=== PATIENT | male | born 1965 | race Caucasian/White ===

== ENCOUNTER → 2018-11-01 10:52 | Outpatient (CLI) | payer SELFPAY | PROVIDERS: Visit Provider Physician Assistant | DX: R68.89 Other general symptoms and signs (principal) | CPT/HCPCS: 87400 ==

== ENCOUNTER → 2018-11-01 11:00 | Outpatient (REF) | payer SELFPAY | LOC: LAB 11:00 | PROVIDERS: Visit Provider Physician Assistant | DX: R68.89 Other general symptoms and signs (principal) ==

== ENCOUNTER 2018-11-01 11:01 | Inpatient (IN) | payer SELFPAY ==
[2018-11-01] VITALS (13 sets, daily range): BP systolic 122–158; BP diastolic 87–99; PULSE 91–130; RESP 20–36; TEMP 37.1–38.8; O2SAT 88–96; BMI 33.9; BMI 35.9
--- NOTE | 2018-11-01 11:02 | DI.RAD.S_ITS ---
PROCEDURE: XR CHEST 2V INDICATIONS: septic eval, cough, fever, chills TECHNIQUE: 2 views of the chest were acquired. COMPARISON: None. FINDINGS: Surgical changes and devices: None. Lungs and pleura: No pleural effusions or pneumothorax. There is pulmonary vascular prominence bilaterally compatible with mild edema. Confluent opacities also noted in the right infrahilar region. Mediastinum: Mediastinal contours are within normal limits. Heart size is normal. Bones and chest wall: No suspicious bony abnormalities. Soft tissues appear unremarkable. IMPRESSION: 1. Right infrahilar opacities consistent with developing consolidation/pneumonia or atelectasis. 2. Mild pulmonary edema is nonspecific and may reflect an atypical infection. Dictated by: Burton Wong M.D. on 11/01/2018 at 11:41 Approved by: Burton Wong M.D. on 11/01/2018 at 11:43
[2018-11-01 11:55] LABS: Add Manual Diff / Slide Review NO; Basophils Absolute Auto 0 /uL (0-100); Basophils Percent Auto 0.6 % (0-2); Eosinophils Absolute Auto 0 /uL (0-450); Eosinophils Percent Auto 0.1 % (2-4); Hematocrit 47.8 % (41-53); Hemoglobin 16.1 g/dL (13.5-17.5); Lymphocytes Absolute Auto 700 /uL (1100-4500); Lymphocytes Percent Auto 9.4 % (25-40); Mean Corpuscular HGB Conc 33.6 % (30-36); Mean Corpuscular Hemoglobin 30.5 PG (26-34); Mean Corpuscular Volume 90.9 fL (80-100); Monocytes Absolute Auto 800 /uL (0-900); Neutrophils Absolute Auto 5500 /uL (1500-7000); Neutrophils Percent Auto 78.9 % (50-75); Platelet Count 252 X10^3/uL (150-400); Red Blood Cell Count 5.26 X10^6/uL (4.5-5.9); Red Cell Distribution Width 13.6 % (11.6-14.8); White Blood Cell Count 6.9 X10^3/uL (4.5-11.0)
--- NOTE | 2018-11-01 11:56 | ED.FEVER ---
HPI - Fever General Chief Complaint: Fever Stated Complaint: FLU LIKE SYMPTOMS Time Seen by Provider: 11/01/18 11:01 Source: patient Mode of arrival: ambulatory Limitations: no limitations History of Present Illness HPI Narrative: 52-year-old male smoker with history of hypertension presents from the walk-in clinic for evaluation of significant respiratory distress, fever and shaking chills. He had what seemed like a typical cold about 2 weeks ago and was doing okay until 3 days ago he began to get quite ill. He complains of headache, sore throat dry hacking cough as well as fever and shaking chills. Today he initially presented to the walk-in clinic who sent him here upon realizing how ill he potentially is. He has nausea and small amount of vomiting but denies any significant diarrhea. On arrival patient has pulse ox in the mid 80s which promptly rises to mid 90s when placed on 4 L by nasal cannula complaint: fever and malaise Onset (ago): day(s) Temperature Source: oral Associated symptoms: chills, rigors, myalgias and cough Relieving factors: nothing Exacerbating factors: nothing Treatments prior to arrival fever: none Related Data Home Medications Medication Instructions Recorded Confirmed aspirin 81 mg PO DAILY 11/01/18 11/01/18 Allergies Allergy/AdvReac Type Severity Reaction Status Date / Time No Known Drug Allergies Allergy Verified 11/01/18 11:33 Review of Systems Constitutional Reports chills, Reports fever(s), Denies lethargy, Reports malaise and Denies weakness Eyes Denies change in vision, Denies eye discharge, Denies irritation and Denies loss of vision ENT Ears, Nose, Mouth, and Throat: Denies change in voice, Denies neck pain and Denies sore throat Cardiovascular Denies chest pain, Denies irregular heart rhythm, Denies lightheadedness, Denies palpitations, Reports dyspnea, Denies dyspnea on exertion and Denies orthopnea Respiratory Reports cough, Reports dyspnea, Denies dyspnea on exertion and Denies wheezing Gastrointestinal Gastrointestinal: Denies abdominal pain, Denies change in bowel habits, Reports diarrhea, Reports nausea and Denies vomiting Genitourinary Denies hematuria, Denies flank pain, Denies urinary incontinence and Denies urinary urgency Musculoskeletal Denies neck pain Integumentary/Breasts Denies pruritus, Denies erythema, Denies rash and Denies wounds Neurologic Denies confusion, Denies loss of vision and Denies weakness Psychiatric Denies anxiety, Denies confusion, Denies depression, Denies homicidal ideation and Denies suicidal ideation Endocrine Denies palpitations Hematologic/Lymphatic Denies easy bruising Allergic/Immunologic Denies wheezing [facility] Social History Smoking Status: Current every day smoker Exam Narrative Exam Narrative: 52-year-old male, appears stated age, obviously quite ill with noted work of breathing Initial Vital Signs Initial Vital Signs: Vital Signs Temperature 102 F H 11/01/18 11:10 Pulse Rate 130 H 11/01/18 11:10 Respiratory Rate 36 H 11/01/18 11:10 Blood Pressure 141/94 H 11/01/18 11:10 Pulse Oximetry 88 L 11/01/18 11:10 Const General: cooperative, well developed and acute distress Nutritional Appearance: well nourished Orientation: alert, awake, oriented x3 and not confused HENMT Head: normal to inspection Ears: hearing grossly normal bilaterally Nose: external nose normal Face and sinus: normal facial exam Mouth: oral mucosae normal Eyes General: appearance normal, both eyes and all related structures Eyelids: eyelids normal Conjunctivae: conjunctivae normal Sclera: sclerae normal Pupils: PERRL EOM: EOM intact bilaterally Neck Neck: normal visual inspection, trachea midline, No lymphadenopathy, No midline deformity and No JVD Lymphatic: No lymphedema Resp Effort & Inspection: audible wheezes, cough, labored, respiratory distress, tachypneic and uses accessory muscles Auscultation: rhonchi and wheezes Cardio Rate: tachycardic Rhythm: regular rhythm Heart Sounds: no click, no gallops, no murmurs and no rubs Pulses: normal peripheral pulses GI Inspection: non-distended Palpation: soft, no hepatosplenomegaly, No guarding, No pulsatile mass and No tender Auscultation: normal bowel sounds Back/Spine/Pelvis Back: No CVA tenderness Cervical Spine: cervical ROM normal and No pain with cervical ROM Thoracic/Lumbar Spine: thoracic and lumbar spine normal to inspection Neuro General: alert, oriented x3, gait normal and no focal motor deficits Speech: speech normal Extrem General: full ROM, no clubbing, cyanosis or edema, no pedal edema and no calf tenderness Course Orders Ordered: ED Orders 11/01/18 11:02 XR chest 2V Stat 11/01/18 11:40 Complete Blood Count AUTO DIFF Stat Comprehensive Metabolic Panel Stat Lactate (Lactic Acid) Stat Procalcitonin Stat 11/01/18 12:07 Blood Culture Stat 11/01/18 12:55 Arterial Blood Gas Stat Sodium Chloride (Normal Saline 0.9%) 3,498 mls @ 1,166 mls/hr 30 ml/kg infuse over 3 hr (3498 ml) IV CONT WINTER Last Admin: 11/01/18 12:24 Dose: 1,166 mls/hr Ceftriaxone Sodium/Dextrose (Rocephin) 1 gm in 50 mls @ 100 mls/hr IV NOW ONE Stop: 11/01/18 14:07 Last Admin: 11/01/18 13:46 Dose: 100 mls/hr Discontinued Medications Acetaminophen (Tylenol) 975 mg PO NOW ONE Stop: 11/01/18 13:18 Last Admin: 11/01/18 13:29 Dose: 975 mg Albuterol/Ipratropium (Duoneb) 3 ml INH NOW ONE Stop: 11/01/18 12:01 Last Admin: 11/01/18 12:04 Dose: 3 ml Levofloxacin (Levaquin) 750 mg in 150 mls @ 100 mls/hr IV NOW ONE Stop: 11/01/18 13:23 Last Infusion: 11/01/18 13:47 Dose: 0 mls/hr Admin: 11/01/18 12:03 Dose: 100 mls/hr Oseltamivir Phosphate (Tamiflu) 75 mg PO NOW ONE Stop: 11/01/18 13:09 Last Admin: 11/01/18 13:29 Dose: 75 mg Vital Signs - 8 hr 11/01/18 11:10 11/01/18 11:35 11/01/18 12:01 Temperature 102 F H Pulse Rate 130 H 120 H 112 H Respiratory Rate 36 H 30 H 30 H Blood Pressure 141/94 H Blood Pressure [Left Arm] 158/88 H Pulse Oximetry 88 L 94 92 11/01/18 12:23 11/01/18 13:16 11/01/18 13:29 Temperature 100.9 F H Pulse Rate 123 H 114 H Respiratory Rate 24 29 H Blood Pressure Blood Pressure [Left Arm] 139/89 150/99 H Pulse Oximetry 95 94 MDM - Fever Medical Records Attestation: I reviewed the patient's medical records. Lab Data Attestation: I reviewed the patient's lab results. Result diagrams: 11/01/18 11:40 11/01/18 11:40 Lab Results 11/01/18 11/01/18 11/01/18 Range/Units 11:40 11:40 11:40 WBC 6.9 (4.5-11.0) X10^3/uL RBC 5.26 (4.5-5.9) X10^6/uL Hgb 16.1 (13.5-17.5) g/dL Hct 47.8 (41-53) % MCV 90.9 (80-100) fL MCH 30.5 (26-34) PG MCHC 33.6 (30-36) % RDW 13.6 (11.6-14.8) % Plt Count 252 (150-400) X10^3/uL Neut % (Auto) 78.9 H (50-75) % Lymph % (Auto) 9.4 L (25-40) % [place] % (Auto) 11.0 (3-14) % Eos % (Auto) 0.1 L (2-4) % Baso % (Auto) 0.6 (0-2) % Neut # (Auto) 5500 (4406-1508) /uL Lymph # (Auto) 700 L (6899-6807) /uL [place] # (Auto) 800 (0-900) /uL Eos # (Auto) 0 (0-450) /uL Baso # (Auto) 0 (0-100) /uL ABG pH (7.35-7.45) ABG pCO2 (35-45) mmHg ABG pO2 (80-100) mmHg ABG HCO3 (22-26) mmol/L ABG Total CO2 (21-31) mmol/L ABG O2 Saturation (95-100) % ABG Base Excess (-2-2) mmol/L FiO2 Sodium 136 L (137-145) mmol/L Potassium 3.9 (3.4-5.1) mmol/L Chloride 99 (98-107) mmol/L Carbon Dioxide 25 (22-32) mmol/L BUN 15 (9-20) mg/dL Creatinine 1.10 (0.66-1.25) mg/dL Estimated GFR > 60.0 (>60) mL/min BUN/Creatinine Ratio 13.6 (6-22) Glucose 123 H (70-100) mg/dL Lactate (0.7-2.1) mmol/L Calcium 9.0 (8.4-10.2) mg/dL Total Bilirubin 0.6 (0.2-1.3) mg/dL AST 45 (17-59) IU/L ALT 50 (21-72) IU/L Alkaline Phosphatase 63 (38-126) U/L Total Protein 8.2 (6.3-8.2) g/dL Albumin 4.8 (3.5-5.0) g/dL Globulin 3.4 (1.7-4.1) g/dL Albumin/Globulin Ratio 1.4 (1.0-2.8) Procalcitonin 0.11 (<0.5) ng/mL 11/01/18 11/01/18 Range/Units 11:40 12:55 WBC (4.5-11.0) X10^3/uL RBC (4.5-5.9) X10^6/uL Hgb (13.5-17.5) g/dL Hct (41-53) % MCV (80-100) fL MCH (26-34) PG MCHC (30-36) % RDW (11.6-14.8) % Plt Count (150-400) X10^3/uL Neut % (Auto) (50-75) % Lymph % (Auto) (25-40) % [place] % (Auto) (3-14) % Eos % (Auto) (2-4) % Baso % (Auto) (0-2) % Neut # (Auto) (8344-5124) /uL Lymph # (Auto) (4139-6756) /uL [place] # (Auto) (0-900) /uL Eos # (Auto) (0-450) /uL Baso # (Auto) (0-100) /uL ABG pH 7.43 (7.35-7.45) ABG pCO2 34.3 L (35-45) mmHg ABG pO2 48 L* (80-100) mmHg ABG HCO3 23 (22-26) mmol/L ABG Total CO2 24 (21-31) mmol/L ABG O2 Saturation 85 L (95-100) % ABG Base Excess -2.0 (-2-2) mmol/L FiO2 0.21 Sodium (137-145) mmol/L Potassium (3.4-5.1) mmol/L Chloride (98-107) mmol/L Carbon Dioxide (22-32) mmol/L BUN (9-20) mg/dL Creatinine (0.66-1.25) mg/dL Estimated GFR (>60) mL/min BUN/Creatinine Ratio (6-22) Glucose (70-100) mg/dL Lactate 1.0 (0.7-2.1) mmol/L Calcium (8.4-10.2) mg/dL Total Bilirubin (0.2-1.3) mg/dL AST (17-59) IU/L ALT (21-72) IU/L Alkaline Phosphatase (38-126) U/L Total Protein (6.3-8.2) g/dL Albumin (3.5-5.0) g/dL Globulin (1.7-4.1) g/dL Albumin/Globulin Ratio (1.0-2.8) Procalcitonin (<0.5) ng/mL Imaging Data Chest x-ray: Radiologist's impression: [address] [id number] XRay Report Signed Patient: Addi Thornton [facility]#: [id number] : 1965Acct:[id number] Age/Sex: 52 / MDate of Service: 11/01/18 Loc: ED Accession Number: [id number] Procedure: XR chest 2V Ordering Provider: Victor Manuel Hinson D.O. PROCEDURE: XR CHEST 2V INDICATIONS: septic eval, cough, fever, chills TECHNIQUE: 2 views of the chest were acquired. COMPARISON: None. FINDINGS: Surgical changes and devices: None. Lungs and pleura: No pleural effusions or pneumothorax. There is pulmonary vascular prominence bilaterally compatible with mild edema. Confluent opacities also noted in the right infrahilar region. Mediastinum: Mediastinal contours are within normal limits. Heart size is normal. Bones and chest wall: No suspicious bony abnormalities. Soft tissues appear unremarkable. IMPRESSION: 1. Right infrahilar opacities consistent with developing consolidation/pneumonia or atelectasis. 2. Mild pulmonary edema is nonspecific and may reflect an atypical infection. Dictated by: Burton Wong M.D. on 11/01/2018 at 11:41 Approved by: Burton Wong M.D. on 11/01/2018 at 11:43 ECG Data Attestation: I personally reviewed and interpreted this ECG as follows: Prior ECG tracings: not available for review Interpretation: EKG is sinus tachycardia rhythm rate [ 113] and free of any signs of ischemia or ectopy. No ST segmental elevation or depression. No T wave inversions Discharge Plan Departure Patient Disposition: Admitted As Inpatient Clinical Impression: Acute respiratory failure with hypoxia, Sepsis, Influenza A, Pneumonia
[2018-11-01] MEDS: levoFLOXacin 750 MG/150 ML PIGGYBACK 100 MG IV (12:03)
[2018-11-01] MEDS: ALBUTEROL/IPRATROPIUM 3 ML AMPUL INH (12:04)
[2018-11-01 12:16] LABS: Alanine Aminotransferase 50 IU/L (21-72); Albumin 4.8 g/dL (3.5-5.0); Albumin Globulin Ratio 1.4 (1.0-2.8); Alkaline Phosphatase 63 U/L (38-126); Aspartate Aminotransferase 45 IU/L (17-59); BUN Creatinine Ratio 13.6 (6-22); Bilirubin Total 0.6 mg/dL (0.2-1.3); Blood Urea Nitrogen 15 mg/dL (9-20); Carbon Dioxide 25 mmol/L (22-32); Chloride 99 mmol/L (98-107); Estimated Glomerular Filt Rate > 60.0 mL/min (>60); Globulin 3.4 g/dL (1.7-4.1); Glucose 123 mg/dL (70-100); HEMOLYSIS < 15 (0-50); Potassium 3.9 mmol/L (3.4-5.1); Sodium 136 mmol/L (137-145); Total Protein 8.2 g/dL (6.3-8.2)
[2018-11-01] MEDS: SODIUM CHLORIDE 0.9% 1166 ML IV (12:24)
[2018-11-01 12:32] LABS: Procalcitonin 0.11 ng/mL (<0.5)
[2018-11-01] MEDS: ACETAMINOPHEN 325 MG TABLET 975 MG PO (13:29)
[2018-11-01] MEDS: OSELTAMIVIR 75 MG CAPSULE PO (13:29)
[2018-11-01 13:32] LABS: PCO2 ABG 34.3 mmHg (35-45); pH ABG 7.43 (7.35-7.45)
[2018-11-01 13:33] LABS: Fractionated Inspired Oxygen 0.21; HCO3 ABG 23 mmol/L (22-26); Oxygen Saturation ABG 85 % (95-100); PO2 ABG 48 mmHg (80-100); TCO2 ABG 24 mmol/L (21-31)
[2018-11-01] MEDS: CEFTRIAXONE 1 GM/50 ML FROZ.PIGGY IV (13:46)
--- NOTE | 2018-11-01 14:59 | PC.NURSE ---
Vital Signs entered by SAIL REPAIRER are said to be on Room Air, which is in error. Patient was on 3L NC throughout stay in ER. Room air saturation is 86%.
--- NOTE | 2018-11-01 17:16 | PC.NURSE ---
1715 - Pt c/o left-side chest pain, sharp with deep breath or cough. Resolve at rest with shallow breathing. VSS. Dr. Cooney aware.
--- NOTE | 2018-11-01 17:24 | P.HP_ITS ---
History of Present Illness Date Patient Seen: 11/01/18 Chief complaint: FLU LIKE SYMPTOMS Narrative: Addi Thornton is a 52-year-old male with a past medical history significant for hypertension, hyperlipidemia, prediabetes which are not medically treated who presented to [facility] for progressive worsening shortness of breath. The patient reports that he has had a productive cough and shortness of breath for several weeks. He reports that over the last 3 days his shortness of breath and cough have acutely worsened. He denies sick contacts. He has had associated fever, chills, nausea, fatigue and weakness. He denies abdominal pain, vomiting, dysuria diarrhea, or constipation. He is a current everyday smoker and smokes half a pack per day. He was found to be influenza a positive in the ED. He was in acute respiratory failure and placed on 4 L supplemental oxygen with saturations in the mid 90s. He was admitted for further management. Of note, patient has significant memory impairment and cannot recall past events , medications, etc. with previous workup for dementia in the past by Neurology unclear diagnosis? No history of CVA that he is aware. He does not have a PCP and has not been seen by a medical professional in 3 years. Patient History Medical History Hyperlipidemia (Acute) Hypertension (Acute) Prediabetes (Acute) Surgical History No history of previous surgery (Acute) Family & Social History Social History: household members spouse Prior Living Arrangements House The patient has a significant other times 10 years. He has 1 daughter and 1 son who are both healthy. 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 He is noncompliant with medical care and does not have a PCP. Safety & Behavioral: Feels Safe in Current Yes Environment Been Physically Hurt or No Threatened By a Person Suicidal Ideation Description None Suicide Plan Description No Plan Tobacco & Substance use: Smoking Status Current every day smoker Smoking packs per day 0.5 x 5 years alcohol intake frequency other Substance Use Type does not use Meds Home Medications Medication Instructions Recorded Confirmed Type Protandin 1 tab PO DAILY 11/01/18 11/01/18 History Tumeric Curcumin 2,000 mg PO DAILY 11/01/18 11/01/18 History aspirin 81 mg PO DAILY 11/01/18 11/01/18 History ibuprofen [Advil] 400 mg PO Q OTHER DAY PRN 11/01/18 11/01/18 History Allergies Allergy/AdvReac Type Severity Reaction Status Date / Time No Known Drug Allergies Allergy Verified 11/01/18 11:33 Review of Systems Review of Systems A 10 system comprehensive review of systems was conducted with the patient and found to be negative except as above in the History of Present Illness. Exam Vital Signs (past 8 hours): - 11/01/18 11:10 11/01/18 11:35 11/01/18 12:01 Temperature 102 F H Pulse Rate 130 H 120 H 112 H Respiratory Rate 36 H 30 H 30 H Blood Pressure 141/94 H Blood Pressure [Left Arm] 158/88 H Pulse Oximetry 88 L 94 92 11/01/18 12:23 11/01/18 13:16 11/01/18 13:29 Temperature 100.9 F H Pulse Rate 123 H 114 H Respiratory Rate 24 29 H Blood Pressure Blood Pressure [Left Arm] 139/89 150/99 H Pulse Oximetry 95 94 11/01/18 14:12 11/01/18 14:57 Temperature 98.7 F Pulse Rate 107 H 105 H Respiratory Rate 29 H 28 H Blood Pressure Blood Pressure [Left Arm] 122/87 130/90 Pulse Oximetry 94 94 Oxygen Delivery Method Nasal Cannula Oxygen Flow Rate 3 Narrative Exam Narrative: General: Middle-aged gentleman sitting in bed, appears ill but in no acute distress, well-developed, well-nourished, significant cognitive impairment at baseline with memory recall deficit. HEENT: Normocephalic, atraumatic. External ears without defect. Pupils equal, round, and reactive to light and accommodation. Anicteric sclerae, moist conjunctivae, and no lid lag. Oropharynx free of erythema and cobble stoning with moist mucosa. Neck: Supple with full range of motion. No lymphadenopathy or thyromegaly. Cardiovascular: Regular rhythm, tachycardic, without murmurs, rubs, or gallops appreciated. Pulmonary: Diminished throughout all lung [place] but clear to auscultation bilaterally without crackles, wheezes, or rhonchi. Normal respiratory effort with no use of accessory muscles. Abdomen: Soft, bowel sounds present, nontender, nondistended. No hepatosplenomegaly or masses appreciated. Extremities: No clubbing, cyanosis, or edema. Skin: Normal temperature, turgor, and texture; no rash, ulcers, or subcutaneous nodules appreciated. Neurological: Cranial nerves grossly intact. Normal muscle strength, tone, and bulk. Reflexes, coordination, and sensory function within normal limits. No known gait impairment. Significant cognitive impairment with long-term memory recall deficit. Psychiatric: Normal mood and affect. Alert and oriented to person, place, and time. Objective Labs Result Diagrams: 11/01/18 11:40 11/01/18 11:40 Labs: Laboratory Results - last 24 hr 11/01/18 11/01/18 11/01/18 11:40 11:40 11:40 WBC 6.9 RBC 5.26 Hgb 16.1 Hct 47.8 MCV 90.9 MCH 30.5 MCHC 33.6 RDW 13.6 Plt Count 252 Neut % (Auto) 78.9 H Lymph % (Auto) 9.4 L [place] % (Auto) 11.0 Eos % (Auto) 0.1 L Baso % (Auto) 0.6 Neut # (Auto) 5500 Lymph # (Auto) 700 L [place] # (Auto) 800 Eos # (Auto) 0 Baso # (Auto) 0 ABG pH ABG pCO2 ABG pO2 ABG HCO3 ABG Total CO2 ABG O2 Saturation ABG Base Excess FiO2 Sodium 136 L Potassium 3.9 Chloride 99 Carbon Dioxide 25 BUN 15 Creatinine 1.10 Estimated GFR > 60.0 BUN/Creatinine Ratio 13.6 Glucose 123 H Lactate Calcium 9.0 Total Bilirubin 0.6 AST 45 ALT 50 Alkaline Phosphatase 63 Total Protein 8.2 Albumin 4.8 Globulin 3.4 Albumin/Globulin Ratio 1.4 Procalcitonin 0.11 11/01/18 11/01/18 11:40 12:55 WBC RBC Hgb Hct MCV MCH MCHC RDW Plt Count Neut % (Auto) Lymph % (Auto) [place] % (Auto) Eos % (Auto) Baso % (Auto) Neut # (Auto) Lymph # (Auto) [place] # (Auto) Eos # (Auto) Baso # (Auto) ABG pH 7.43 ABG pCO2 34.3 L ABG pO2 48 L* ABG HCO3 23 ABG Total CO2 24 ABG O2 Saturation 85 L ABG Base Excess -2.0 FiO2 0.21 Sodium Potassium Chloride Carbon Dioxide BUN Creatinine Estimated GFR BUN/Creatinine Ratio Glucose Lactate 1.0 Calcium Total Bilirubin AST ALT Alkaline Phosphatase Total Protein Albumin Globulin Albumin/Globulin Ratio Procalcitonin Assessment & Plan Plan: Assessment/Plan Narrative: Addi Thornton is a 52-year-old male with a past medical history significant for hypertension, hyperlipidemia, prediabetes which are not medically treated who presented to [facility] for progressive worsening shortness of breath. 1. Acute hypoxemic respiratory failure, present on admission. Active. -Secondary to acute influenza a infection and right hilar pneumonia. -Chest x-ray interpreted by me demonstrated right hilar infiltrate with mild flash pulmonary edema. -ABG demonstrated: PH 7.43, pCO2 34.3, PO2 48, HC03 23 with SpO2 85%. -Patient placed on 4 L of supplemental oxygen with sats in the mid 90s. Continue supplemental oxygen as needed. -Treat influenza a infection as below. 2. Acute influenza a infection, present on admission. Active. -Patient positive for influenza A. -Started Oseltamivir 75 mg daily. Continue daily while acutely ill. Recommended exposed family members be treated prophylactically for influenza if not showing signs or symptoms. -Ordered Tessalon Perles 100 mg 3 times daily as needed for cough and guaifenesin 1200 mg b.i.d.. Consider prednisone for cough paroxysms is severe and persistent. 3. Acute community-acquired right hilar pneumonia, present on admission. Active. -Chest x-ray demonstrates right hilar infiltrate. -Started on levofloxacin and ceftriaxone in the ED and will continue for broad- spectrum and atypical coverage. -Ordered complete pneumonia workup including: Respiratory viral PCR, strep pneumonia and Legionella urine antigens, sputum culture, and blood culture x2. 4. Probable obstructive sleep apnea, present on admission. Active. -Ordered respiratory therapy evaluation and treatment. Place on CPAP at night if tolerated for probable SUSHANT and flash pulmonary edema to mobilize fluid. 5. Hypertension, present on admission. Active. -Not medically treated. -Will continue to monitor blood pressure closely and start antihypertensive therapy if needed. 6. Hyperlipidemia, present on admission. Presumed stable. -Not medically treated. -Ordered fasting lipid panel. 7. Prediabetes, present on admission. Presumed stable -Ordered hemoglobin A1c, pending. -If blood glucose elevated consistently will consider starting low-dose correctional scale insulin for glycemic control. Patient is admitted under inpatient status with expected length of stay greater than 2 midnights due to severity of presenting symptoms, risk of adverse event, and complexity of treatment plan. Quality VTE Deep Vein Thrombosis/Pulmonary Embolism Present on Admission: No
[2018-11-01] MEDS: INFLUENZA VACCINE 0.5 ML SYRINGE IM (18:54)
[2018-11-01] MEDS: SODIUM CHLORIDE 0.9% 1,000 ML 100 ML IV (18:54)
--- NOTE | 2018-11-01 20:25 | PC.NURSE ---
1999- Patient has been able to tolerate Bi Pap. Saturations are improved and heart rate is wnl. Respirations low to mid 20's. Pt is afebrile at this time. Will monitor.
[2018-11-01] MEDS: HEPARIN 5,000 UNIT/ML VIAL 5000 UNIT SUBCUT (20:57)
[2018-11-01] MEDS: guaiFENesin ER 600 MG TAB 1200 MG PO (20:57)
[2018-11-01] MEDS: ACETAMINOPHEN 325 MG TABLET 650 MG PO (21:03)
[2018-11-01] MEDS: BENZONATATE 100 MG CAPSULE PO (22:29)
--- NOTE | 2018-11-01 23:00 | PC.NURSE ---
2300- Patient off BiPap on nasal cannula at 6liters saturation is 94% Patient agrees to go back on BiPap if his saturations don't hold.
[2018-11-02] VITALS (9 sets, daily range): BP systolic 103–136; BP diastolic 59–89; PULSE 72–103; RESP 20–28; TEMP 36.3–38.1; O2SAT 92–95
[2018-11-02 03:10] LABS: Adenovirus Not Detected (Not Detect); Bordetella pertussis Not Detected (Not Detect); Chlamydophila pneumoniae Not Detected (Not Detect); Coronavirus 229E Not Detected (Not Detect); Coronavirus HKU1 Not Detected (Not Detect); Coronavirus NL 63 Not Detected (Not Detect); Coronavirus OC43 Not Detected (Not Detect); Human Metapneumovirus Not Detected (Not Detect); Human Rhinovirus/Enterovirus Not Detected (Not Detect); Influenza A Detected (Not Detect); Influenza B Not Detected (Not Detect); Mycoplasma pneumoniae Not Detected (Not Detect); Parainfluenza Virus 1 Not Detected (Not Detect); Parainfluenza Virus 2 Not Detected (Not Detect); Parainfluenza Virus 3 Not Detected (Not Detect); Parainfluenza Virus 4 Not Detected (Not Detect); Respiratory Syncytial Virus Not Detected (Not Detect)
[2018-11-02 05:25] LABS: Add Manual Diff / Slide Review NO; Basophils Absolute Auto 0 /uL (0-100); Basophils Percent Auto 0.5 % (0-2); Eosinophils Absolute Auto 0 /uL (0-450); Hematocrit 42.3 % (41-53); Hemoglobin 14.5 g/dL (13.5-17.5); Lymphocytes Absolute Auto 1100 /uL (1100-4500); Lymphocytes Percent Auto 17.8 % (25-40); Mean Corpuscular HGB Conc 34.3 % (30-36); Mean Corpuscular Volume 90.5 fL (80-100); Monocytes Absolute Auto 600 /uL (0-900); Monocytes Percent Auto 10.4 % (3-14); Neutrophils Absolute Auto 4300 /uL (1500-7000); Neutrophils Percent Auto 71.3 % (50-75); Platelet Count 196 X10^3/uL (150-400); Red Blood Cell Count 4.68 X10^6/uL (4.5-5.9); Red Cell Distribution Width 13.3 % (11.6-14.8)
[2018-11-02 05:29] LABS: BUN Creatinine Ratio 13.8 (6-22); Blood Urea Nitrogen 11 mg/dL (9-20); Calcium 7.9 mg/dL (8.4-10.2); Carbon Dioxide 26 mmol/L (22-32); Chloride 105 mmol/L (98-107); Cholesterol 165 mg/dL (140-199); Estimated Glomerular Filt Rate > 60.0 mL/min (>60); Glucose 115 mg/dL (70-100); HDL Cholesterol 31 mg/dL (40-60); HEMOLYSIS < 15 (0-50); LDL Cholesterol Calculated 105 mg/dL (<100); Potassium 3.9 mmol/L (3.4-5.1); Sodium 138 mmol/L (137-145); Triglycerides 143 mg/dL (35-150)
--- NOTE | 2018-11-02 06:57 | PC.NURSE ---
NOC Shift: Pt remains on 6LNC tolerating with sats 93 to 95% even while asleep. Denies SOB unless w/activity. Continues to have barking, persistent cough w/productive sputum, sent to lab. VSS, SR 1 AVB. Bipap on standby. IVF's, taking po. Cultures pending, in droplet precautions for influenza A. ICU status.
[2018-11-02 07:58] LABS: Procalcitonin 0.16 ng/mL (<0.5)
--- NOTE | 2018-11-02 08:38 | CM.DANOTE ---
DCP: Case received, EMR reviewed and met with patient. Introduced self and role. DCP template completed with information currently available. Patient is a 52 year old male who admitted yesterday afternoon to the care of the hospitalist team. PCP: No primary provider. Payer: No insurance. Patient came to hospital via family vehicle due to shortness of breath, and respiratory distress. Patient holds a diagnosis of Pneumonia, and Influenza A. According to patient and ICU nurse, significant other also has had Influenza A, and was told to not come in today since she is ill as well. Patient lives with . He has no insurance. He is supposed to meet with [employer] financial counselor on Sunday. He also has no primary provider as well. Asked patient about his insurance situation. He stated that at one time, he had [employer], but he could not afford the premiums. He is employed at [employer] in [place]. Patient is independent, drives, uses a cane at times. He is also a current smoker. P: DCP to follow closely. Patient will be here until medically stable. Should be able to be discharged home when stable. Maureen Dominguez, ALYCIA/Logistic Specialist
--- NOTE | 2018-11-02 09:10 | PM.PN.1 ---
Subjective Date Patient Seen: 11/02/18 Interval history: Patient is hospitalized due to influenza and pneumonia. He reports continued cough and low-grade fever. Also complaining of some chronic back pain improved with position change Exam Vital Signs (past 8 hours): - 11/02/18 03:29 11/02/18 04:30 11/02/18 06:28 Temperature 100.5 F H Pulse Rate 101 H Respiratory Rate 21 Blood Pressure 136/88 Pulse Oximetry 92 95 94 11/02/18 08:45 11/02/18 08:46 Temperature 98.3 F Pulse Rate 103 H Respiratory Rate 23 Blood Pressure 103/59 L Pulse Oximetry 92 92 Oxygen Delivery Method Nasal Cannula Oxygen Flow Rate 5 Narrative Exam Narrative: GENERAL: Alert, pleasant and cooperative HEENT: Pupils equal CHEST: Clear to auscultation bilaterally. CARDIAC: Regular rate and rhythm. ABDOMEN: Nondistended, soft, nontender EXTREMITIES: no edema. NEUROLOGICAL: Alert, pleasant, no focal findings SKIN: Warm, dry, no petechiae, no rash Objective Labs Result Diagrams: 11/02/18 04:56 11/02/18 04:56 Labs: Laboratory Results - last 24 hr 11/01/18 11/01/18 11/01/18 11:40 11:40 11:40 WBC 6.9 RBC 5.26 Hgb 16.1 Hct 47.8 MCV 90.9 MCH 30.5 MCHC 33.6 RDW 13.6 Plt Count 252 Neut % (Auto) 78.9 H Lymph % (Auto) 9.4 L [place] % (Auto) 11.0 Eos % (Auto) 0.1 L Baso % (Auto) 0.6 Neut # (Auto) 5500 Lymph # (Auto) 700 L [place] # (Auto) 800 Eos # (Auto) 0 Baso # (Auto) 0 ABG pH ABG pCO2 ABG pO2 ABG HCO3 ABG Total CO2 ABG O2 Saturation ABG Base Excess FiO2 Sodium 136 L Potassium 3.9 Chloride 99 Carbon Dioxide 25 BUN 15 Creatinine 1.10 Estimated GFR > 60.0 BUN/Creatinine Ratio 13.6 Glucose 123 H Hemoglobin A1c Lactate Calcium 9.0 Total Bilirubin 0.6 AST 45 ALT 50 Alkaline Phosphatase 63 Total Protein 8.2 Albumin 4.8 Globulin 3.4 Albumin/Globulin Ratio 1.4 Triglycerides Cholesterol LDL Cholesterol, Calc HDL Cholesterol Procalcitonin 0.11 Nasal Screen MRSA (PCR) Chlamy pneumoniae PCR Adenovirus (PCR) B.parapertussis DNA PCR Coronavirus OC43 (PCR) Coronavirus HKU1 (PCR) Coronavirus 229E (PCR) Coronavirus NL63 (PCR) Human Metapneumovir PCR Influenza Type A (PCR) Influenza Type B (PCR) M. pneumoniae (PCR) Parainfluenza 1 (PCR) Parainfluenza 2 (PCR) Parainfluenza 3 (PCR) Parainfluenza 4 (PCR) RSV (PCR) Entero/Rhino (PCR) 11/01/18 11/01/18 11/01/18 11:40 12:55 15:20 WBC RBC Hgb Hct MCV MCH MCHC RDW Plt Count Neut % (Auto) Lymph % (Auto) [place] % (Auto) Eos % (Auto) Baso % (Auto) Neut # (Auto) Lymph # (Auto) [place] # (Auto) Eos # (Auto) Baso # (Auto) ABG pH 7.43 ABG pCO2 34.3 L ABG pO2 48 L* ABG HCO3 23 ABG Total CO2 24 ABG O2 Saturation 85 L ABG Base Excess -2.0 FiO2 0.21 Sodium Potassium Chloride Carbon Dioxide BUN Creatinine Estimated GFR BUN/Creatinine Ratio Glucose Hemoglobin A1c Lactate 1.0 Calcium Total Bilirubin AST ALT Alkaline Phosphatase Total Protein Albumin Globulin Albumin/Globulin Ratio Triglycerides Cholesterol LDL Cholesterol, Calc HDL Cholesterol Procalcitonin Nasal Screen MRSA (PCR) Negative for mrsa Chlamy pneumoniae PCR Adenovirus (PCR) B.parapertussis DNA PCR Coronavirus OC43 (PCR) Coronavirus HKU1 (PCR) Coronavirus 229E (PCR) Coronavirus NL63 (PCR) Human Metapneumovir PCR Influenza Type A (PCR) Influenza Type B (PCR) M. pneumoniae (PCR) Parainfluenza 1 (PCR) Parainfluenza 2 (PCR) Parainfluenza 3 (PCR) Parainfluenza 4 (PCR) RSV (PCR) Entero/Rhino (PCR) 11/01/18 11/02/18 11/02/18 23:00 04:56 04:56 WBC 6.0 RBC 4.68 Hgb 14.5 Hct 42.3 MCV 90.5 MCH 31.0 MCHC 34.3 RDW 13.3 Plt Count 196 Neut % (Auto) 71.3 Lymph % (Auto) 17.8 L [place] % (Auto) 10.4 Eos % (Auto) 0.0 L Baso % (Auto) 0.5 Neut # (Auto) 4300 Lymph # (Auto) 1100 [place] # (Auto) 600 Eos # (Auto) 0 Baso # (Auto) 0 ABG pH ABG pCO2 ABG pO2 ABG HCO3 ABG Total CO2 ABG O2 Saturation ABG Base Excess FiO2 Sodium Potassium Chloride Carbon Dioxide BUN Creatinine Estimated GFR BUN/Creatinine Ratio Glucose Hemoglobin A1c Lactate Calcium Total Bilirubin AST ALT Alkaline Phosphatase Total Protein Albumin Globulin Albumin/Globulin Ratio Triglycerides Cholesterol LDL Cholesterol, Calc HDL Cholesterol Procalcitonin 0.16 Nasal Screen MRSA (PCR) Chlamy pneumoniae PCR Not detected Adenovirus (PCR) Not detected B.parapertussis DNA PCR Not detected Coronavirus OC43 (PCR) Not detected Coronavirus HKU1 (PCR) Not detected Coronavirus 229E (PCR) Not detected Coronavirus NL63 (PCR) Not detected Human Metapneumovir PCR Not detected Influenza Type A (PCR) Detected H Influenza Type B (PCR) Not detected M. pneumoniae (PCR) Not detected Parainfluenza 1 (PCR) Not detected Parainfluenza 2 (PCR) Not detected Parainfluenza 3 (PCR) Not detected Parainfluenza 4 (PCR) Not detected RSV (PCR) Not detected Entero/Rhino (PCR) Not detected 11/02/18 11/02/18 04:56 04:56 WBC RBC Hgb Hct MCV MCH MCHC RDW Plt Count Neut % (Auto) Lymph % (Auto) [place] % (Auto) Eos % (Auto) Baso % (Auto) Neut # (Auto) Lymph # (Auto) [place] # (Auto) Eos # (Auto) Baso # (Auto) ABG pH ABG pCO2 ABG pO2 ABG HCO3 ABG Total CO2 ABG O2 Saturation ABG Base Excess FiO2 Sodium 138 Potassium 3.9 Chloride 105 Carbon Dioxide 26 BUN 11 Creatinine 0.80 Estimated GFR > 60.0 BUN/Creatinine Ratio 13.8 Glucose 115 H Hemoglobin A1c 6.0 Lactate Calcium 7.9 L Total Bilirubin AST ALT Alkaline Phosphatase Total Protein Albumin Globulin Albumin/Globulin Ratio Triglycerides 143 Cholesterol 165 LDL Cholesterol, Calc 105 H HDL Cholesterol 31 L Procalcitonin Nasal Screen MRSA (PCR) Chlamy pneumoniae PCR Adenovirus (PCR) B.parapertussis DNA PCR Coronavirus OC43 (PCR) Coronavirus HKU1 (PCR) Coronavirus 229E (PCR) Coronavirus NL63 (PCR) Human Metapneumovir PCR Influenza Type A (PCR) Influenza Type B (PCR) M. pneumoniae (PCR) Parainfluenza 1 (PCR) Parainfluenza 2 (PCR) Parainfluenza 3 (PCR) Parainfluenza 4 (PCR) RSV (PCR) Entero/Rhino (PCR) Assessment & Plan Plan: Assessment/Plan Narrative: Addi Thornton is a 52-year-old male with a past medical history significant for hypertension, hyperlipidemia, prediabetes which are not medically treated who presented to [facility] for progressive worsening shortness of breath. Tested positive for influenza a and has hilar pneumonia on x-ray. 1. Acute hypoxemic respiratory failure, present on admission. Active. -currently on 5 L O2 with sat 93% -Secondary to acute influenza a infection and right hilar pneumonia. -Chest x-ray interpreted by tn demonstrated right hilar infiltrate with mild flash pulmonary edema. -ABG demonstrated: PH 7.43, pCO2 34.3, PO2 48, HC03 23 with SpO2 85%. -Patient placed on 4 L of supplemental oxygen with sats in the mid 90s. Continue supplemental oxygen as needed. -Treat influenza a infection and pneumonia as below. 2. Acute influenza a infection, present on admission. Active. -continue Oseltamivir 75 mg twice daily. Recommended exposed family members be treated prophylactically for influenza if not showing signs or symptoms. -Tessalon Perles 100 mg 3 times daily as needed for cough and guaifenesin 1200 mg b.i.d.. 3. Acute community-acquired right hilar pneumonia, possibly bacterial, present on admission. Active. -Chest x-ray demonstrates right hilar infiltrate. WBC normal, procalcitonin remains less than 0.5 -continue levofloxacin and ceftriaxone for broad-spectrum and atypical coverage. -urine Legionella antigen and serum ASO pending 4. Probable obstructive sleep apnea, present on admission. Active. -Ordered respiratory therapy evaluation and treatment. He did not tolerate BiPAP. 5. Hypertension, present on admission. Active. -BP trending down on its own. -Not medically treated. -Will continue to monitor blood pressure closely and start antihypertensive therapy if needed. 6. Dyslipidemia, present on admission. Presumed stable. -Not medically treated. -total 165, LDL 105, HDL 31, triglycerides 143 7. Prediabetes, present on admission. Presumed stable -hemoglobin A1c 6.0, glucose low 100 range Disposition: Patient can discharge once afebrile and off of supplemental O2. Quality VTE Deep Vein Thrombosis/Pulmonary Embolism Present on Admission: No
[2018-11-02] MEDS: guaiFENesin ER 600 MG TAB 1200 MG PO ×2 (09:55→22:00)
[2018-11-02] MEDS: HEPARIN 5,000 UNIT/ML VIAL 5000 UNIT SUBCUT ×2 (09:56→22:00)
[2018-11-02] MEDS: ASPIRIN 81 MG TAB PO (09:56)
[2018-11-02] MEDS: OSELTAMIVIR 75 MG CAPSULE PO ×2 (09:56→22:00)
[2018-11-02] MEDS: levoFLOXacin 250 MG TABLET 750 MG PO (12:17)
[2018-11-02] MEDS: CEFTRIAXONE 2 GM/50 ML FROZ.PIGGY IV (12:18)
[2018-11-02] MEDS: BENZONATATE 100 MG CAPSULE PO (16:10)
[2018-11-02] MEDS: IBUPROFEN 600 MG TABLET PO (16:10)
[2018-11-03] VITALS (16 sets, daily range): BP systolic 112–138; BP diastolic 71–87; PULSE 73–87; RESP 20–23; TEMP 36.2–37.9; O2SAT 89–95
--- NOTE | 2018-11-03 | DI.RAD.S_ITS ---
PROCEDURE: XR CHEST 2V INDICATIONS: pneumonia TECHNIQUE: 2 views of the chest were acquired. COMPARISON: [facility], CR, XR CHEST 2V, 11/01/2018, 11:15. FINDINGS: Surgical changes and devices: None. Lungs and pleura: No pleural effusions or pneumothorax. Right infrahilar opacity is again seen and is not significantly changed. Mediastinum: Mediastinal contours are normal. Heart size is normal. Bones and chest wall: No suspicious bony abnormalities. Soft tissues appear unremarkable. IMPRESSION: Concerning for a persistent small right infrahilar infiltrate. Left lung is clear. Dictated by: Macario Cameron M.D. on 11/03/2018 at 10:46 Approved by: Macario Cameron M.D. on 11/03/2018 at 10:47
[2018-11-03] MEDS: HEPARIN 5,000 UNIT/ML VIAL 5000 UNIT SUBCUT ×2 (09:13→21:45)
[2018-11-03] MEDS: guaiFENesin ER 600 MG TAB 1200 MG PO ×2 (09:13→21:45)
[2018-11-03] MEDS: ASPIRIN 81 MG TAB PO (09:14)
[2018-11-03] MEDS: OSELTAMIVIR 75 MG CAPSULE PO ×2 (09:14→21:45)
[2018-11-03] MEDS: IBUPROFEN 600 MG TABLET PO ×2 (09:20→21:46)
[2018-11-03] MEDS: BENZONATATE 100 MG CAPSULE PO (09:29)
[2018-11-03] MEDS: levoFLOXacin 250 MG TABLET 750 MG PO (12:06)
[2018-11-03] MEDS: CEFTRIAXONE 2 GM/50 ML FROZ.PIGGY IV (12:06)
--- NOTE | 2018-11-03 15:25 | P.PN_ITS ---
Subjective Date Patient Seen: 11/03/18 Interval history: Patient is hospitalized due to influenza and pneumonia. He seems to be turning the corner today with improvement in cough, dyspnea, and hypoxia. Repeat two view chest x-ray shows no change in right hilar infiltrate. Exam Vital Signs (past 8 hours): - 11/03/18 07:35 11/03/18 09:45 11/03/18 11:00 Temperature 100.2 F H 97.2 F L Pulse Rate 87 77 Respiratory Rate 20 20 Blood Pressure 121/77 130/79 Pulse Oximetry 89 L 94 93 11/03/18 11:19 11/03/18 11:20 Temperature Pulse Rate Respiratory Rate Blood Pressure Pulse Oximetry 89 L 91 Oxygen Delivery Method Nasal Cannula Oxygen Flow Rate 4 Narrative Exam Narrative: GENERAL: Alert, pleasant and cooperative HEENT: Pupils equal CHEST: Clear to auscultation bilaterally. CARDIAC: Regular rate and rhythm. ABDOMEN: Nondistended, soft, nontender EXTREMITIES: no edema. NEUROLOGICAL: Alert, pleasant, no focal findings SKIN: Warm, dry, no petechiae, no rash Objective Labs Result Diagrams: 11/02/18 04:56 11/02/18 04:56 Assessment & Plan Plan: Assessment/Plan Narrative: Addi Thornton is a 52-year-old male with a past medical history significant for hypertension, hyperlipidemia, prediabetes which are not medically treated who presented to [facility] for progressive worsening shortness of breath. Tested positive for influenza a and has hilar pneumonia on x-ray. 1. Acute hypoxemic respiratory failure, present on admission. Active. -currently on 4 L O2 with sat 91%, improved -Secondary to acute influenza a infection and right hilar pneumonia. -Treat influenza a infection and pneumonia as below. 2. Acute influenza a infection, present on admission. Active. -still with low-grade fever and hypoxia -continue Oseltamivir 75 mg twice daily. Recommended exposed family members be treated prophylactically for influenza if not showing signs or symptoms. -Tessalon Perles 100 mg 3 times daily as needed for cough and guaifenesin 1200 mg b.i.d.. 3. Acute community-acquired right hilar pneumonia, possibly bacterial, present on admission. Active. -Chest x-ray demonstrates right hilar infiltrate. WBC normal, procalcitonin remains less than 0.5 -continue levofloxacin and ceftriaxone for broad-spectrum and atypical coverage for total 5-7 days antibiotic treatment. -urine Legionella antigen and serum ASO pending 4. Probable obstructive sleep apnea, present on admission. Active. -Ordered respiratory therapy evaluation and treatment. He did not tolerate BiPAP. 5. Elevated BP on admission without hypertension -blood pressure is trending down and have been normal 6. Dyslipidemia, present on admission. Presumed stable. -Not medically treated. -total 165, LDL 105, HDL 31, triglycerides 143 7. Prediabetes, present on admission. Presumed stable -hemoglobin A1c 6.0, glucose low 100 range Disposition: Patient can discharge once afebrile and off of supplemental O2. Quality VTE Deep Vein Thrombosis/Pulmonary Embolism Present on Admission: No
[2018-11-04] VITALS: BP 117/72; PULSE 74; RESP 18; TEMP 36.6; O2SAT 92
[2018-11-04 02:41] VITALS: O2SAT 92
[2018-11-04 04:00] VITALS: BP 99/63; PULSE 73; RESP 20; TEMP 35.9; O2SAT 91
--- NOTE | 2018-11-04 06:54 | PC.NURSE ---
NOC Shift: Pt AAOX3, states feeling better tonight. Was able to get out of bed and sit in chair, and take a shower. Remains on 2.5LNC, up to 3L at night when sleeping sats drop below 90. Continues to have barking bronchial cough, now dry intermittently. VSS. Off tele. HL. Independent w/urinal. Has quickly dropping sats below 90 when O2 is off to low of 86%.
[2018-11-04 07:00] VITALS: O2SAT 92
[2018-11-04 08:00] VITALS: BP 117/83; PULSE 82; RESP 16; TEMP 36.6; O2SAT 94
[2018-11-04] MEDS: HEPARIN 5,000 UNIT/ML VIAL 5000 UNIT SUBCUT (08:24)
[2018-11-04] MEDS: SENNOSIDES 8.6 MG TABLET 17.2 MG PO (08:24)
[2018-11-04] MEDS: OSELTAMIVIR 75 MG CAPSULE PO (08:24)
[2018-11-04] MEDS: ASPIRIN 81 MG TAB PO (08:24)
[2018-11-04] MEDS: guaiFENesin ER 600 MG TAB 1200 MG PO (08:24)
[2018-11-04] MEDS: BENZONATATE 100 MG CAPSULE PO (08:24)
[2018-11-04] MEDS: ACETAMINOPHEN 325 MG TABLET 650 MG PO (08:25)
[2018-11-04 09:30] VITALS: O2SAT 94
--- NOTE | 2018-11-04 09:33 | PC.NURSE ---
Addendum entered by Maddie Allen R.N. 11/04/18 12:03: PT DISCHARGED TO HOME WITH INFO ON FLU AND LENGTHY REVIEW OF DISCHARGE PLAN AND CONTINUANCE OF ORAL ABX WELL TAMIFLU- INDICATED UNDERSTANDING AND LEFT HOSPITAL AT THIS TIME Original Note: pt ambulated around the unit x 2 and then rechecked on room air and was initially 96% post ambulation then down to 92%- he is hopeful to go home
--- NOTE | 2018-11-04 09:52 | P.DS_ITS ---
History of Present Illness Date Patient Seen: 11/04/18 Chief complaint: FLU LIKE SYMPTOMS Narrative: Addi Thornton is a 52-year-old male with a past medical history significant for hypertension, hyperlipidemia, prediabetes which are not medically treated who presented to [facility] for progressive worsening shortness of breath. The patient reports that he has had a productive cough and shortness of breath for several weeks. He reports that over the last 3 days his shortness of breath and cough have acutely worsened. He denies sick contacts. He has had associated fever, chills, nausea, fatigue and weakness. He denies abdominal pain, vomiting, dysuria diarrhea, or constipation. He is a current everyday smoker and smokes half a pack per day. He was found to be influenza a positive in the ED. He was in acute respiratory failure and placed on 4 L supplemental oxygen with saturations in the mid 90s. He was admitted for further management. Of note, patient has significant memory impairment and cannot recall past events , medications, etc. with previous workup for dementia in the past by Neurology unclear diagnosis? No history of CVA that he is aware. He does not have a PCP and has not been seen by a medical professional in 3 years. Discharge Providers Date of admission: 11/01/18 13:55 Consults: 11/01/18 18:09 Consult to Respiratory Therapy Evaluate & Treat Comment: Bipap SUSHANT Physician Instructions: Evaluate and treat Discharge provider: Tete Lock MD Discharge Date: 11/04/18 Summary Discharge Diagnosis: Acute hypoxic respiratory failure, present on admission, resolved Acute influenza a, present on admission, currently under treatment Community-acquired pneumonia, present on admission, treatment continue Hyperlipidemia, present on admission, stable Hypertension, present on admission, stable Memory impairment, etiology unclear, present on admission, unchanged Probable sleep apnea, present on admission, further outpatient workup needed Pre diabetes present on admission Hospital Course: Patient admitted to the hospital with cough shortness of breath and hypoxia. His girlfriend has influenza and was evaluated in the emergency department. He has been treated with Tamiflu. In addition the patient was found to have left hilar infiltrate. He has been treated with antibiotics for same. Patient made slow but steady improvement. His oxygenation improved. He no longer is requiring oxygen. He is afebrile. Patient was able to ambulate without difficulty. He reports he lost his PCP when the cost for insurance increased and has not followed up with a PCP since. Patient will be referred to the [facility] for outpatient evaluation. At the time of this evaluation the patient is felt to be close to baseline. He is deemed appropriate for discharge and arrangements are made for him to be discharged home. Status at Discharge Functional status at discharge: independent ambulation Overall status at discharge: patient is back to baseline Time Spent with Patient Less than 30 minutes Exam Vital Signs (past 8 hours): - 11/04/18 02:41 11/04/18 04:00 11/04/18 07:00 Temperature 96.7 F L Pulse Rate 73 Respiratory Rate 20 Blood Pressure 99/63 Pulse Oximetry 92 91 92 11/04/18 08:00 11/04/18 09:30 Temperature 97.9 F Pulse Rate 82 Respiratory Rate 16 Blood Pressure 117/83 Pulse Oximetry 94 94 Oxygen Delivery Method Room Air Oxygen Flow Rate 3 Narrative Exam Narrative: Pleasant gentleman In no obvious distress Lungs lungs: Occasional scattered rhonchi bilaterally no wheezes or crackles Cardiac exam: Regular rate rhythm normal S1 and S2 Abdomen: Soft nontender nondistended Extremities: No edema Gait: Within normal limits Objective Labs Result Diagrams: 11/02/18 04:56 11/02/18 04:56 Discharge Plan Discharge Plan Discharge Problem: Acute respiratory failure with hypoxia, Sepsis, Influenza A, Pneumonia Patient Disposition: Home Discharge comment: Patient to be referred to [facility] for an outpatient new patient appointment Discharge Med Rec/Prescriptions Prescriptions: New benzonatate 100 mg Capsule 100 mg PO TID PRN (Reason: Cough) Qty: 20 RF: 0 guaifenesin 600 mg Tablet Extended Release 12hr 1,200 mg PO BID Qty: 10 RF: 0 oseltamivir [Tamiflu] 75 mg Capsule 75 mg PO BID 2 Days Qty: 4 RF: 0 levofloxacin 250 mg Tablet 750 mg PO 1200 Qty: 4 RF: 0 Continue aspirin 81 mg Tablet,Chewable 81 mg PO DAILY RF: 0 ibuprofen [Advil] 200 mg Tablet 400 mg PO Q OTHER DAY PRN (Reason: headache) RF: 0 Tumeric Curcumin 2,000 mg PO DAILY RF: 0 Protandin 1 tab PO DAILY RF: 0 Provider Discharge Instructions Diet: Low-sodium and Low-cholesterol Activity: aS tolerated Oxygen: None indicated at this time Other treatments: Follow-up with new primary care provider next week for further evaluation of sleep apnea, hypertension, hyperlipidemia and prediabetes Discharge Data Attending Provider: Eliza Cooney Admit Date/Time: 11/01/18 13:55 Quality VTE Deep Vein Thrombosis/Pulmonary Embolism Present on Admission: No
--- NOTE | 2018-11-04 10:50 | CM.DPC ---
Addendum entered by Maureen Dominguez R.N. 11/04/18 12:08: Spoke to Maddie in ICU. She stated that patient left, and Shantel had come down and gave patient information on [facility], as well as provider information. He stated that he would follow up. Original Note: DCP Cont: Patient is to be discharged home today. Let Shantel, admissions counselor know that patient is leaving, no insurance. She was originally going to speak to patient Sunday. Patient is to follow up with [facility], but also depends on insurance. Unknown if patient will be compliant about seeing a provider or keeping appointments. P: Patient is to be discharged today home. He will need to get established with a provider for follow up care. Maureen Dominguez RN/[employer]
[2018-11-05 13:12] LABS: Anti-Streptolysin O Antibody 65 IU/mL (< 200)
== END 2018-11-04 12:08 | disposition home or self-care (01) | DRG 189 ==
LOC: ED 13:48 → AC 13:55 → ICU 16:09
PROVIDERS: Admitting Provider Internal Medicine; Emergency Provider Emergency Medicine; Visit Provider Internal Medicine
DX: J96.01 Acute respiratory failure with hypoxia (principal); J10.08 Influenza due to other identified influenza virus with other specified pneumonia; J15.9 Unspecified bacterial pneumonia; G47.33 Obstructive sleep apnea (adult) (pediatric); F17.210 Nicotine dependence, cigarettes, uncomplicated; R73.03 Prediabetes; Z91.19 Patient's noncompliance with other medical treatment and regimen
CPT/HCPCS: 36415; 36591; 36600; 71046; 80048; 80053; 80061; 82805; 83036; 83605; 84145; 85025; 86060; 87040; 87070; 87205; 87449; 87633; 87797; 90471; 90656; 93005; 94640; 94660; 94762; 96365; 96366; 96367; 99284; 99285; 99406; J0696; J1644; J1956; Q2038

== ENCOUNTER → 2019-03-03 09:15 | Outpatient (CLI) | payer OTHER, SELFPAY ==
[2018-11-01 15:35] VITALS: BMI 35.9
[2018-11-01 19:10] VITALS: PULSE 91; RESP 20; O2SAT 96
[2019-03-03 10:39] LABS: Hemoglobin A1C% w Est Avg Glu 5.8 % (4.0-6.0)
[2019-03-03 10:47] LABS: Alanine Aminotransferase 40 IU/L (21-72); Albumin 4.3 g/dL (3.5-5.0); Albumin Globulin Ratio 1.5 (1.0-2.8); Alkaline Phosphatase 65 U/L (38-126); Aspartate Aminotransferase 28 IU/L (17-59); BUN Creatinine Ratio 21.1 (6-22); Bilirubin Total 0.7 mg/dL (0.2-1.3); Blood Urea Nitrogen 19 mg/dL (9-20); C-Reactive Protein Quant 1.1 mg/dL (<1.0); Calcium 9.1 mg/dL (8.4-10.2); Carbon Dioxide 30 mmol/L (22-32); Chloride 104 mmol/L (98-107); Cholesterol 229 mg/dL (140-199); Estimated Glomerular Filt Rate > 60.0 mL/min (>60); Globulin 2.8 g/dL (1.7-4.1); Glucose 109 mg/dL (70-100); HDL Cholesterol 34 mg/dL (40-60); HEMOLYSIS < 15 (0-50); LDL Cholesterol Calculated 133 mg/dL (<100); Potassium 3.9 mmol/L (3.4-5.1); Sodium 140 mmol/L (137-145); Total Protein 7.1 g/dL (6.3-8.2); Triglycerides 308 mg/dL (35-150)
[2019-03-03 11:08] LABS: Add Manual Diff / Slide Review NO; Basophils Absolute Auto 100 /uL (0-100); Basophils Percent Auto 1.1 % (0-2); Eosinophils Absolute Auto 200 /uL (0-450); Hematocrit 45.1 % (41-53); Hemoglobin 15.1 g/dL (13.5-17.5); Lymphocytes Absolute Auto 1900 /uL (1100-4500); Lymphocytes Percent Auto 24.4 % (25-40); Mean Corpuscular HGB Conc 33.5 % (30-36); Mean Corpuscular Hemoglobin 30.7 PG (26-34); Mean Corpuscular Volume 91.7 fL (80-100); Monocytes Absolute Auto 600 /uL (0-900); Monocytes Percent Auto 7.5 % (3-14); Neutrophils Absolute Auto 4900 /uL (1500-7000); Platelet Count 311 X10^3/uL (150-400); Red Blood Cell Count 4.92 X10^6/uL (4.5-5.9); Red Cell Distribution Width 13.7 % (11.6-14.8); White Blood Cell Count 7.7 X10^3/uL (4.5-11.0)
[2019-03-03 11:16] LABS: Free T4, Direct Thyroxine 0.87 ng/dL (0.78-2.19)
[2019-03-03 11:30] LABS: Thyroid Stimulating Hormone 1.62 uIU/mL (0.47-4.68)
[2019-03-03 11:32] LABS: Erythrocyte Sedimentation Rate 5 MM/HR (0-15)
[2019-03-03 11:38] LABS: HIV 1 and 2 Antibody NEGATIVE (NEGATIVE)
[2019-03-03 11:47] LABS: Folate 13.4 ng/mL (2.76-20.0); Vitamin B12 654 pg/mL (239-931)
[2019-03-06 12:16] LABS: Homocysteine 7.6 umol/L (< 11.4)
[2019-03-09 16:52] LABS: Arsenic < 2 mcg/L (< 23); Lead, Blood < 1 mcg/dL (< 5)
[2019-03-11 10:29] LABS: Mercury, Blood < 2
== END ==
LOC: LAB 09:15
PROVIDERS: PCP Internal Medicine; Visit Provider Internal Medicine
DX: E78.5 Hyperlipidemia, unspecified (principal); G47.30 Sleep apnea, unspecified; I10 Essential (primary) hypertension; R41.3 Other amnesia; R73.03 Prediabetes
CPT/HCPCS: 36415; 80053; 80061; 82607; 82746; 83036; 83090; 83825; 84439; 84443; 85025; 85651; 86140; 86703

== ENCOUNTER → 2019-07-21 16:37 | Outpatient (CLI) | payer OTHER, SELFPAY ==
[2018-11-01 15:35] VITALS: BMI 35.9
[2018-11-01 19:10] VITALS: PULSE 91; RESP 20; O2SAT 96
--- NOTE | 2019-07-21 16:41 | DI.RAD.S_ITS ---
PROCEDURE: XR SACRUM COCCYX MIN 2V INDICATIONS: sacral pain TECHNIQUE: 3 views of the sacrum and coccyx acquired. COMPARISON: None. FINDINGS: Bones: Fracture of lower sacrum/proximal coccyx is seen with dorsal displacement at fracture site. No suspicious bony lesions. Soft tissues: Visualized bowel gas pattern is normal. No suspicious soft tissue densities. IMPRESSION: Dorsally displaced distal sacral/proximal coccygeal fracture. Dictated by: Macario Cameron M.D. on 07/21/2019 at 17:15 Approved by: Macario Cameron M.D. on 07/21/2019 at 17:15
--- NOTE | 2019-07-21 16:41 | DI.RAD.S_ITS ---
PROCEDURE: XR CHEST 2V INDICATIONS: cough TECHNIQUE: 2 views of the chest were acquired. COMPARISON: [facility], CR, XR CHEST 2V, 11/03/2018, 10:15. FINDINGS: Surgical changes and devices: None. Lungs and pleura: Lungs are clear. No pleural effusions or pneumothorax. Mediastinum: Mediastinal contours are normal. Heart size is normal. Bones and chest wall: No suspicious bony abnormalities. Soft tissues appear unremarkable. IMPRESSION: No acute cardiopulmonary pathology. Dictated by: Macario Cameron M.D. on 07/21/2019 at 17:14 Approved by: Macario Cameron M.D. on 07/21/2019 at 17:15
== END ==
PROVIDERS: PCP Internal Medicine; Visit Provider Internal Medicine
DX: M53.3 Sacrococcygeal disorders, not elsewhere classified (principal); R05 Cough; S32.2XXA Fracture of coccyx, initial encounter for closed fracture; S32.19XA Other fracture of sacrum, initial encounter for closed fracture
CPT/HCPCS: 71046; 72220

== ENCOUNTER → 2020-06-18 12:11 | Outpatient (CLI) | payer OTHER, SELFPAY ==
[2018-11-01 15:35] VITALS: BMI 35.9
[2018-11-01 19:10] VITALS: PULSE 91; RESP 20; O2SAT 96
[2020-06-18 15:37] LABS: Bacteria Urine None Seen; RBC Urine None Seen (0-5/HPF); WBC Urine None Seen (0-5/HPF)
[2020-06-18 15:49] LABS: Appearance Urine UA CLEAR; Bilirubin Urine UA NEGATIVE (NEGATIVE); Color Urine UA YELLOW; Glucose Urine UA NEGATIVE (Negative); Ketones Urine UA NEGATIVE (NEGATIVE); Leukocyte Esterase Urine UA NEGATIVE (NEGATIVE); Nitrite Urine UA NEGATIVE (Negative); Occult Blood Urine UA NEGATIVE (Negative); Protein Urine UA NEGATIVE (Negative); Urobilinogen Urine UA 0.2 E.U./dL (0.2)
[2020-06-18 16:14] LABS: Culture Indicated Urine Cult Not Indicated
== END ==
PROVIDERS: PCP Internal Medicine; Visit Provider Nurse Practitioner Family
DX: R35.1 Nocturia (principal)
CPT/HCPCS: 81001; 87086

== ENCOUNTER → 2020-06-18 12:12 | Outpatient (CLI) | payer OTHER, SELFPAY ==
[2018-11-01 15:35] VITALS: BMI 35.9
[2018-11-01 19:10] VITALS: PULSE 91; RESP 20; O2SAT 96
[2020-06-18 14:03] LABS: Hematocrit 43.6 % (41-53); Mean Corpuscular HGB Conc 34.3 % (30-36); Mean Corpuscular Hemoglobin 31.5 PG (26-34); Mean Corpuscular Volume 91.9 fL (80-100); Platelet Count 327 X10^3/uL (150-400); Red Blood Cell Count 4.75 X10^6/uL (4.5-5.9); White Blood Cell Count 9.4 X10^3/uL (4.5-11.0)
[2020-06-18 14:53] LABS: HEMOLYSIS < 15 (0-50)
[2020-06-18 15:02] LABS: BUN Creatinine Ratio 22.2 (6-22); Blood Urea Nitrogen 20 mg/dL (9-20); Calcium 9.4 mg/dL (8.4-10.2); Carbon Dioxide 28 mmol/L (22-32); Chloride 103 mmol/L (98-107); Estimated Glomerular Filt Rate > 60.0 mL/min (>60); Glucose 93 mg/dL (70-100); Potassium 4.7 mmol/L (3.4-5.1); Sodium 137 mmol/L (137-145)
== END ==
PROVIDERS: PCP Internal Medicine; Referring Provider Nurse Practitioner Family; Visit Provider Nurse Practitioner Family
DX: R35.1 Nocturia (principal); Z12.5 Encounter for screening for malignant neoplasm of prostate
CPT/HCPCS: 36415; 80048; 81001; 85027; 87086; G0103

== ENCOUNTER → 2021-03-10 09:57 | Outpatient (CLI) | payer OTHER, SELFPAY ==
[2018-11-01 15:35] VITALS: BMI 35.9
[2018-11-01 19:10] VITALS: PULSE 91; RESP 20; O2SAT 96
[2021-03-10 10:46] LABS: Alanine Aminotransferase 37 IU/L (<50); Albumin 4.2 g/dL (3.5-5.0); Albumin Globulin Ratio 1.4 (1.0-2.8); Alkaline Phosphatase 68 U/L (38-126); Aspartate Aminotransferase 33 IU/L (17-59); BUN Creatinine Ratio 22.7 (6-22); Bilirubin Total 0.5 mg/dL (0.2-1.3); Blood Urea Nitrogen 20 mg/dL (9-20); Calcium 9.3 mg/dL (8.4-10.2); Carbon Dioxide 29 mmol/L (22-32); Chloride 105 mmol/L (98-107); Cholesterol 215 mg/dL (140-199); Estimated Glomerular Filt Rate > 60.0 mL/min (>60); Globulin 2.9 g/dL (1.7-4.1); Glucose 115 mg/dL (70-100); HDL Cholesterol 39 mg/dL (40-60); HEMOLYSIS < 15 (0-50); LDL Cholesterol Calculated 126 mg/dL (<100); Potassium 4.6 mmol/L (3.4-5.1); Sodium 140 mmol/L (137-145); Total Protein 7.1 g/dL (6.3-8.2); Triglycerides 249 mg/dL (35-150)
[2021-03-10 11:16] LABS: TSH w/ Reflex to FT4 1.36 uIU/mL (0.47-4.68)
== END ==
PROVIDERS: PCP Internal Medicine; Referring Provider Internal Medicine; Visit Provider Internal Medicine
DX: E78.5 Hyperlipidemia, unspecified (principal); I10 Essential (primary) hypertension; R73.03 Prediabetes; R41.3 Other amnesia
CPT/HCPCS: 36415; 80053; 80061; 84443

== ENCOUNTER 2021-05-09 10:50 | Emergency (ER) | payer OTHER, SELFPAY ==
[2018-11-01 15:35] VITALS: BMI 35.9
[2018-11-01 19:10] VITALS: PULSE 91; RESP 20; O2SAT 96
[2021-05-09 11:17] VITALS: BP 144/80; PULSE 92; RESP 14; TEMP 36.4; O2SAT 99; BMI 37.5
--- NOTE | 2021-05-09 13:36 | ED_ITS ---
HPI - Extremity Problem General Chief complaint: Extremity Problem,Nontraumatic Stated complaint: lump in leg Time Seen by Provider: 05/09/21 13:31 Source: patient Mode of arrival: Ambulatory Limitations: no limitations History of Present Illness HPI Narrative: 55-year-old male daily smoker with noncontributory medical history presents with a chief complaint of pain and swelling in his right testicle for the past few days. He has been working incredibly hard lifting heavy objects up a steep incline for the better part of the week. He states that he has been feeling increasing pain in his right testicle and states he can feel that the rope to his testicle is swollen. He denies any traumatic injury. He denies fever or chills. He has had no nausea, vomiting or diarrhea. He is having bowel movements and passing gas without difficulty. Related Data Home Medications Medication Instructions Recorded Confirmed aspirin 81 mg chewable tablet 81 mg PO DAILY 11/01/18 05/09/21 Previous Rx's Medication Instructions Recorded doxycycline hyclate 100 mg tablet 100 mg PO BID #20 tab 05/09/21 hydrocodone 5 mg-acetaminophen 325 1 tab PO Q4-6H PRN #10 tab 05/09/21 mg tablet Allergies Allergy/AdvReac Type Severity Reaction Status Date / Time No Known Drug Allergies Allergy Verified 05/09/21 11:22 Review of Systems Review of Systems Narrative: GENERAL: Denies chills, fatigue, malaise, fever, sweats. HEENT: Denies sinus pain, ear pain, sore throat, difficulty swallowing, dizziness. RESPIRATORY: Denies dyspnea, cough, wheezing, hemoptysis, sputum. CARDIOVASCULAR: Denies chest pain, palpitations, orthopnea, edema, GASTROINTESTINAL: Denies nausea, vomiting, abdominal pain, diarrhea, constipation, melena. : Denies dysuria, frequency, incontinence, hematuria, urinary retention. MUSCULOSKELETAL: denies weakness, joint pain, or bony pain SKIN: Denies rash, skin lesions, or other NEUROLOGIC: Denies weakness, headache, numbness, change in speech, confusion, seizures, incoordination. PSYCHIATRIC: No concerning psychosocial issues. 12 point review of systems is negative except for those stated above Patient History Medical History Chronic back pain Fractures Hearing loss Hyperlipidemia Hypertension Migraines Nocturia Prediabetes Restless leg syndrome Sleep apnea Umbilical hernia Vision changes Surgical History No history of previous surgery Family History Mother H/O gastric bypass Kidney disease Liver disease Social History household members: spouse Smoking Status: Current every day smoker Smoking Status: Current every day smoker alcohol intake frequency: other Substance Use Type: does not use Exam Narrative Exam Narrative: GENERAL: [55] year old patient appears stated age. Well- developed patient, in mild distress. HEAD: Atraumatic. Normocephalic. EYES: Pupils equal round and reactive. Extraocular motions intact. No scleral icterus. No injection or drainage. ENT: Nose without bleeding, purulent drainage. Throat without erythema, tonsillar hypertrophy or exudate. Airway patent. NECK: Trachea midline. Non tender CARDIOVASCULAR: Regular rate and rhythm without murmurs, gallops, or rubs. RESPIRATORY: Clear to auscultation. Breath sounds equal bilaterally. No wheezes, rales, or rhonchi. GASTROINTESTINAL: Abdomen soft, non-tender, nondistended. Umbilical hernia is easily reduced : Exam with patient standing, some mild swelling and tenderness noted superior to the right testicle, no erythema, warmth induration or fluctuance, likely small hernia EXTREMITIES: No edema or joint tenderness. BACK: Nontender without deformity or crepitance. No flank tenderness. NEURO: AOx3. SKIN: No rash or erythema of visible areas Initial Vital Signs Initial Vital Signs: Vital Signs Temperature 97.6 F 05/09/21 11:17 Pulse Rate 92 H 05/09/21 11:17 Respiratory Rate 14 05/09/21 11:17 Blood Pressure 144/80 H 05/09/21 11:17 Pulse Oximetry 99 05/09/21 11:17 Course Orders Ordered: Discontinued Medications Sodium Chloride (Normal Saline 0.9%) 1,000 mls @ 1,000 mls/hr IV BOLUS ONE Stop: 05/09/21 12:56 Last Admin: 05/09/21 13:15 Dose: Not Given Documented by: CATA Consultations Consultation #1: Discussed with on-call General surgery, given size of hernia, that it is largely reducible, and only fat containing, along with patient's tolerance of discomfort patient can be discharged with return precautions and encouraged to follow-up with his office. Vital Signs Vital signs: Vital Signs - 8 hr 05/09/21 11:17 05/09/21 16:38 Temperature 97.6 F Pulse Rate 92 H 78 Respiratory Rate 14 16 Blood Pressure 144/80 H 137/97 H Pulse Oximetry 99 98 MDM - Extremity (Nontraumatic) Lab Data Labs: Urine Dip Bedside Urine Glucose Negative Bedside Urine Bilirubin - Negative Bedside Urine Ketone - Negative Urine Specific [place] 1.025 Bedside Urine Occult Blood - Negative Bedside Urine pH 6.0 Bedside Urine Protein - Negative Bedside Urine Urobilinogen - Negative Bedside Urine Nitrite - Negative Bedside Urine Leukocytes - Negative Esterase Imaging Data Scrotal US: Radiologist's Impression: Chart Viewer Diagnostics DATE TYPE STATUS REF RANGE/AUTHOR Hx 05/09/21 15:35 Fco Mathur 07/21/19 16:41 Macario Cameron 07/21/19 16:41 Macario Cameron 11/03/18 00:00 Macario Cameron 11/01/18 13:55 11/01/18 11:02 Burton Wong 55, M1965 [facility], [facility] ED 185.42cm 129.274kg BMI: 37.6kg/m? Extremity Problem,Nontraumatic Search Chart No Data to Display Total Pending Discharge ONSET 05/09/21 16:38 Addi Thornton M 55 M [address] [id number] ReportSigned Patient: Addi Thornton MMR#: [id number]: 1965Acct:[id number]/Sex: 55 / MDate of Service: 05/09/21Loc: EDAccession Number: [id number] Procedure: US scrotum Ordering Provider: Victor Manuel Hinson D.O. PROCEDURE: US SCROTUM INDICATIONS: TESTICULAR SWELLING TECHNIQUE: Real-time scanning was performed of the scrotum and testicles, with image documentation. Color and pulse Doppler interrogation was performed of both testicles. COMPARISON: None. FINDINGS: Right: Testicle is normal in size at 4.6 x 3.6 x 2.0 cm, and homogenous in echotexture. Epididymis is normal in overall size and morphology. No hydrocele or varicoceles. Overlying scrotal skin is normal in thickness. Left: Testicle is normal in size at 4.7 x 3.2 x 2.4 cm, and homogeneous in echotexture. Left epididymal head cyst measuring 2 mm. No hydrocele or varicoceles. Overlying scrotal skin is normal in thickness. Doppler: Color and pulse Doppler demonstrate normal and symmetric arterial flow in both testicles. In the area described as a cord-like palpable abnormality in the right medial groin, there is a fat containing partially reducible hernia measuring 1.3 x 1.1 cm. In the area of the palpable abnormality involving the proximal/medial thigh inferior and lateral to the scrotum there is a hypoechoic focus with associated vascularity, potentially communicating to the skin surface. IMPRESSION: Normal appearance of the testicles bilaterally. Right inguinal fat containing partially reducible hernia as above. Additional hypoechoic focus in the proximal right thigh (in the area of palpable abnormality ) suggestive of phlegmon/inflammatory mass, potentially developing abscess. Please correlate clinically and recommend clinical management and follow-up to document resolution after treatment and exclude underlying mass. Dictated by: Fco Mathur M.D. on 05/09/2021 at 16:39 Approved by: Fco Mathur M.D. on 05/09/2021 at 16:44 MDM Narrative Medical decision making narrative: Multiple diagnoses considered including testicular torsion versus epididymitis, varicocele and others. These are thought unlikely given ultrasound findings which demonstrate a small fat containing hernia. This is largely reducible, patient is tolerating the pain quite well, having bowel movements, and passing gas. Extensive return precautions given and questions answered to his apparent satisfaction Discharge Plan Departure Patient Disposition: Home Clinical Impression: Inguinal hernia Qualifiers: Obstruction and gangrene presence: with obstruction but without gangrene Laterality: unilateral Recurrence: non-recurrent Qualified Code(s): K40.30 - Unilateral inguinal hernia, with obstruction, without gangrene, not specified as recurrent Instructions: Groin Hernia -- Adult Activity Restrictions/Additional Instructions: *You have been diagnosed with [right fat containing inguinal hernia (no evidence of bowel involvement)] *What to do: *Please continue to take your regular medications as directed. [ x] New medication prescriptions sent to your pharmacy: [[facility] ] [ ] New medication written as a paper prescription [ ] No new medications given *avoid heavy lifting >15 lbs *follow up with Dr. Castillo of [facility], call tomorrow for an appointment. Let them know that you were seen and evaluated in the emergency department and we would like you to follow-up *Return to Emergency Department if you should have any new, worsening or concerning symptoms, such as [fever greater than 101 F, shaking chills, worsening pain, persistent vomiting or other bothersome symptoms] Prescriptions: New hydrocodone-acetaminophen 5-325 mg tablet 1 tab PO Q4-6H PRN (Reason: pain) Qty: 10 RF: 0 doxycycline hyclate 100 mg tablet 100 mg PO BID Qty: 20 RF: 0 No Action aspirin 81 mg Tablet,Chewable 81 mg PO DAILY RF: 0 Referrals: Michael Reinoso MD [Primary Care Provider] - Suresh Castillo MD [Physician] -
--- NOTE | 2021-05-09 15:35 | DI.US.S_ITS ---
PROCEDURE: US SCROTUM INDICATIONS: TESTICULAR SWELLING TECHNIQUE: Real-time scanning was performed of the scrotum and testicles, with image documentation. Color and pulse Doppler interrogation was performed of both testicles. COMPARISON: None. FINDINGS: Right: Testicle is normal in size at 4.6 x 3.6 x 2.0 cm, and homogenous in echotexture. Epididymis is normal in overall size and morphology. No hydrocele or varicoceles. Overlying scrotal skin is normal in thickness. Left: Testicle is normal in size at 4.7 x 3.2 x 2.4 cm, and homogeneous in echotexture. Left epididymal head cyst measuring 2 mm. No hydrocele or varicoceles. Overlying scrotal skin is normal in thickness. Doppler: Color and pulse Doppler demonstrate normal and symmetric arterial flow in both testicles. In the area described as a cord-like palpable abnormality in the right medial groin, there is a fat containing partially reducible hernia measuring 1.3 x 1.1 cm. In the area of the palpable abnormality involving the proximal/medial thigh inferior and lateral to the scrotum there is a hypoechoic focus with associated vascularity, potentially communicating to the skin surface. IMPRESSION: Normal appearance of the testicles bilaterally. Right inguinal fat containing partially reducible hernia as above. Additional hypoechoic focus in the proximal right thigh (in the area of palpable abnormality ) suggestive of phlegmon/inflammatory mass, potentially developing abscess. Please correlate clinically and recommend clinical management and follow-up to document resolution after treatment and exclude underlying mass. Dictated by: Fco Mathur M.D. on 05/09/2021 at 16:39 Approved by: Fco Mathur M.D. on 05/09/2021 at 16:44
[2021-05-09 16:38] VITALS: BP 137/97; PULSE 78; RESP 16; O2SAT 98
== END 2021-05-09 17:08 | disposition home or self-care (01) ==
PROVIDERS: Emergency Provider Emergency Medicine; PCP Internal Medicine
DX: K40.30 Unilateral inguinal hernia, with obstruction, without gangrene, not specified as recurrent (principal)
CPT/HCPCS: 76870; 81003; 99283

== ENCOUNTER → 2022-05-16 10:20 | Outpatient (CLI) | payer OTHER, SELFPAY ==
[2018-11-01 15:35] VITALS: BMI 35.9
[2018-11-01 19:10] VITALS: PULSE 91; RESP 20; O2SAT 96
[2022-05-16 12:40] LABS: COVID19 -Nasal RAPID Negative (Negative)
== END ==
PROVIDERS: PCP Internal Medicine; Visit Provider Surgery
DX: Z20.822 Contact with and (suspected) exposure to COVID-19 (principal); Z01.812 Encounter for preprocedural laboratory examination
CPT/HCPCS: 87635; C9803

== ENCOUNTER 2022-05-17 10:09 | Day surgery (SDC) | payer OTHER, SELFPAY ==
[2018-11-01 15:35] VITALS: BMI 35.9
[2018-11-01 19:10] VITALS: PULSE 91; RESP 20; O2SAT 96
[2022-05-17] VITALS (8 sets, daily range): BP systolic 124–139; BP diastolic 76–93; PULSE 84–841; RESP 8–18; TEMP 36.2–36.7; O2SAT 93–100; BMI 36.9
[2022-05-17] MEDS: LACTATED RINGERS 1,000 ML 100 ML IV ×2 (11:21→13:56)
--- NOTE | 2022-05-17 12:17 | PM.HP.1 ---
History of Present Illness History of Present Illness Date Patient Seen: 05/17/22 Time Patient Seen: 12:18 Chief complaint: OPEN UMBILICAL & RIH REPAIR Narrative: 56-year-old man here for an elective open umbilical and right inguinal hernia repair. Please refer to the H& P from March for further detail. No interval changes health. Patient History Medical History Chronic back pain Fractures Hearing loss Hyperlipidemia Hypertension Migraines Nocturia Prediabetes Restless leg syndrome Sleep apnea Umbilical hernia Vision changes Surgical History No history of previous surgery Family & Social History Family History Mother H/O gastric bypass Kidney disease Liver disease Social History: household members significant other Tobacco & Substance use: Tobacco type cigarettes Smoking Status Current every day smoker alcohol intake never alcohol intake frequency other Substance Use Type marijuana Meds Home Medications and Allergies Home Medications Medication Instructions Recorded Confirmed Type aspirin 81 mg chewable tablet 81 mg PO DAILY 11/01/18 05/17/22 History turmeric See Rx Instructions .Route .COMPLEX 06/02/21 05/17/22 History Allergies Allergy/AdvReac Type Severity Reaction Status Date / Time No Known Drug Allergies Allergy Verified 05/17/22 10:39 Exam Vital Signs (past 8 hours): - 05/17/22 10:44 Temperature 98.0 F Pulse Rate 98 H Respiratory Rate 14 Blood Pressure 130/93 H Pulse Oximetry 96 Oxygen Delivery Method Room Air Oxygen Delivery Method Room Air Narrative Exam Narrative: General adult male alert oriented no acute distress Abdomen umbilical and right inguinal hernia marked my initials. Assessment & Plan Assessment and plan (1) Right inguinal hernia: Status: Acute Assessment & Plan narrative: 56-year-old man with a right inguinal and umbilical hernia here for open elective repair. Over the operation was again discussed with the patient the bedside. Operative risks including bleeding, infection, recurrence, chronic pain were discussed. His questions have been answered and he is in agreement with this plan. Time Spent With Patient Critical Care time: I spent a total of [] minutes of critical care time on this patient's care today; this time is exclusive of procedural time.
[2022-05-17] MEDS: CEFAZOLIN 2 GM IN 0.9 % NACL 100 ML IV (13:08)
--- NOTE | 2022-05-17 13:17 | SUR.OPER ---
Supine on padded OR bed, head on pillow, arms secured on padded arm boards at <90 degrees abduction, legs uncrossed, safety belt at thigh.
[2022-05-17] MEDS: LIDOCAINE 1% 20 ML INJ (14:06)
--- NOTE | 2022-05-17 14:31 | P.OP_ITS ---
Operative Date/Time/Diagnoses Date of procedure: 05/17/22 Time of procedure: 14:31 Pre-op diagnosis: Umbilical and right inguinal hernia Post-op diagnosis: same Procedure & Clinicians Procedure: Open umbilical and right inguinal hernia repair with mesh Same procedure as scheduled: Yes Indications: Symptomatic umbilical and right inguinal hernia Surgeon: Suresh Castillo Click Yes if Unassisted: Yes Anesthesia Type: General Operative Notes Findings: Large indirect hernia defect containing incarcerated omentum. No direct floor defect 2 cm fascial defect at the umbilicus containing omentum. Specimen(s): none sent Estimated Blood Loss (mL): 20 Procedure in detail: Patient was brought to the operating room placed supine on the table. Bilateral lower extremity compression devices were applied. General anesthesia was induced and they were intubated with an endotracheal tube. They received 2 g of Ancef prior to skin incision. They were prepped and draped in sterile fashion. A time-out was performed. A curvilinear incision was made inferior to the umbilicus. The subcutaneous tissues were divided. The umbilical hernia was identified and the hernia sac was dissected off the umbilical skin and circumferentially off of the fascia defect. The hernia sac was sharply opened and contained viable omentum. The omentum was reduced back into the abdomen. Using blunt dissection I carefully carefully freed the hernia sac from beneath the fascia defect in order to accomodate the mesh. The fascia defect was 2 cm in maximal diameter. A Bard Ventralex ST hernia patch 6 cm was inserted beneath the fascia defect in a sublay position. The mesh was anchored in multiple locations using Ethibond suture to the fascia and the fascial defect was closed over the mesh. The umbilical skin was tacked to the subcutaneous tissues and then the remainder of the subcutaneous tissues were reapproximated using 3 0 Vicry,l skin closed with 4 0 Monocryl followed by the application of Dermabond . The right external inguinal ring and the anterior superior iliac crest were identified and marked. 1 finger breath above the inguinal ligament the skin was infiltrated with 0.25% bupivacaine. The skin incision was made here and the subcutaneous tissues were divided with electrocautery exposing the external oblique aponeurosis which was then opened along the direction of its fibers. Using blunt dissection the internal oblique aporneurosis was from the external oblique upper leaflet to identify the iliohypogastric nerve. Using a kittner the cord was carefully dissected away from the inguinal canal adjacent to the pubic tubercle. The cord including the vas deferens, testicular bloody supply, ilioguinal and genital nerve were encircled with a [place] drain. No direct floor defect was identified. The cremasteric fibers surrounding the cord were divided using electrocautery adjacent to the internal ring.. The vas deferens and the testicular vessels were preserved and protected. There was a small indirect hernia on the anterior medial aspect of the cord which was skeletonized away from the vas deferens and testicular blood supply. There was a large indirect hernia which was skeletonized back to the internal ring. It contained incarcerated omentum and the omentum was ligated with Vicryl and then transected in order to get it to reduce back into the abdomen. I selected a 7x 15 cm lightweight Pro Loop hernia mesh. The inferior medial aspect of the mesh was anchored to insertion of the rectus muscle to the pubic tubercle such that there was approximately 2 cm of tubercle overlap with Ethibond and then was run continuously along the inferior edge of the mesh to the shelving edge of the inguinal ligament. Interrupted 3 0 Vicryl suture was used to anchor the superior aspect of the mesh to the conjoined tendon in several places. The tails were then reapproximated loosely around the spermatic cord. The tails of the mesh were then tucked under the external oblique aponeurosis. The repair was checked for hemostasis. The wound was irrigated with sterile saline. The external oblique aponeurosis was reapproximated in a running fashion using 3 0 Vicryl. The subcutaneous tissues were reapproximated with 3 0 Vicryl skin closed with 4 0 Monocryl followed by the application of Dermabond. At the end of the operation I ensured that both testicles were within the scrotum. The sponge instrument count at the end operation was correct. The patient emerged from anesthesia was extubated and transferred to the postoperative care unit in stable condition. A total of 30 ml of of 0.25% bupivicaine was used to infiltrate the skin. Complications: none Post-operative Condition: stable Disposition: same day surgery
[2022-05-17] MEDS: fentaNYL 100 MCG/2 ML INJ IV ×2 (14:50→14:55)
[2022-05-17] MEDS: OXYCODONE/ACETAMINOPHEN 5/325 TABLET 1 TAB PO (15:11)
--- NOTE | 2022-05-17 18:05 | SUR.PHASEII ---
Charting done by Cammie Montano RN Care done by Alfreda Curry RN. Assisted pt to dress, then left unit in stable condition.
== END 2022-05-17 16:00 | disposition home or self-care (01) ==
PROVIDERS: PCP Internal Medicine; Referring Provider Surgery; Visit Provider Surgery
PROC: (CPT 49507; principal; 2022-05-17 12:15)
DX: K40.30 Unilateral inguinal hernia, with obstruction, without gangrene, not specified as recurrent (principal); K42.0 Umbilical hernia with obstruction, without gangrene
CPT/HCPCS: 49507; 49587; 82962; J0330; J0690; J1100; J2405; J2704; J3010

== ENCOUNTER → 2024-05-20 09:35 | Outpatient (CLI) | payer OTHER, SELFPAY ==
[2018-11-01 15:35] VITALS: BMI 35.9
[2018-11-01 19:10] VITALS: PULSE 91; RESP 20; O2SAT 96
[2024-05-20 10:16] LABS: Add Manual Diff / Slide Review NO; Basophils Absolute Auto 100 /uL (0-100); Basophils Percent Auto 1.3 % (0-2); Eosinophils Absolute Auto 300 /uL (0-450); Eosinophils Percent Auto 3.2 % (2-4); Hematocrit 44.1 % (41-53); Hemoglobin 14.9 g/dL (13.5-17.5); Lymphocytes Absolute Auto 2200 /uL (1100-4500); Lymphocytes Percent Auto 24.7 % (25-40); Mean Corpuscular HGB Conc 33.8 % (30-36); Mean Corpuscular Hemoglobin 30.7 PG (26-34); Monocytes Absolute Auto 800 /uL (0-900); Monocytes Percent Auto 8.8 % (3-14); Neutrophils Absolute Auto 5600 /uL (1500-7000); Platelet Count 332 X10^3/uL (150-400); Red Blood Cell Count 4.85 X10^6/uL (4.5-5.9); Red Cell Distribution Width 13.7 % (11.6-14.8); White Blood Cell Count 9.1 X10^3/uL (4.5-11.0)
[2024-05-20 10:35] LABS: Hemoglobin A1C% w Est Avg Glu 6.3 % (4.0-6.0)
[2024-05-20 10:45] LABS: Alanine Aminotransferase 37 IU/L (<50); Albumin 4.2 g/dL (3.5-5.0); Albumin Globulin Ratio 1.6 (1.0-2.8); Alkaline Phosphatase 74 U/L (38-126); Aspartate Aminotransferase 28 IU/L (17-59); BUN Creatinine Ratio 18.9 (6-22); Bilirubin Total 0.7 mg/dL (0.2-1.3); Blood Urea Nitrogen 18 mg/dL (9-20); Calcium 8.8 mg/dL (8.4-10.2); Carbon Dioxide 25 mmol/L (22-32); Chloride 107 mmol/L (98-107); Cholesterol 211 mg/dL (140-199); Estimated Glomerular Filt Rate > 60 mL/min (>60); Globulin 2.6 g/dL (1.7-4.1); Glucose 120 mg/dL (70-100); HDL Cholesterol 40 mg/dL (40-60); HEMOLYSIS 29 (0-50); LDL Cholesterol Calculated 113 mg/dL (<100); Potassium 4.4 mmol/L (3.4-5.1); Sodium 138 mmol/L (137-145); Total Protein 6.8 g/dL (6.3-8.2); Triglycerides 291 mg/dL (35-150)
[2024-05-20 11:16] LABS: Prostate Specific Antigen Scrn 0.657 ng/mL (0.1-4.0)
== END ==
PROVIDERS: PCP Internal Medicine; Referring Provider Internal Medicine; Visit Provider Internal Medicine
DX: Z12.5 Encounter for screening for malignant neoplasm of prostate (principal); I10 Essential (primary) hypertension; E78.5 Hyperlipidemia, unspecified; R73.03 Prediabetes; D64.9 Anemia, unspecified
CPT/HCPCS: 36415; 80053; 80061; 83036; 85025; G0103

== ENCOUNTER 2024-08-05 14:41 | Emergency (ER) | payer OTHER, SELFPAY ==
[2018-11-01 15:35] VITALS: BMI 35.9
[2018-11-01 19:10] VITALS: PULSE 91; RESP 20; O2SAT 96
[2024-08-05] VITALS (8 sets, daily range): BP systolic 184–205; BP diastolic 98–114; PULSE 81–95; RESP 16–24; TEMP 36.7; O2SAT 93–96; BMI 39.6
--- NOTE | 2024-08-05 14:57 | EKG_ITS ---
[address] [address] [address], [place] [address] Test Date: 2024-08-05 Pat Name: Addi Thornton Department: Room: Gender: Male Regional Coordinator: LANDRY : 1965 Requested By: Order Number: [id number] Reading MD: Clive Hernandez Measurements Intervals [place] Rate: 84 P: -10 [place]: 174 QRS: 52 QRSD: 84 T: 54 QT: 386 QTc: 456 Interpretive Statements Normal sinus rhythm Electronically Signed On 08-06-2024 13:38:39 PDT by Clive Hernandez
--- NOTE | 2024-08-05 14:57 | DI.RAD.S_ITS ---
PROCEDURE: XR CHEST 1V INDICATIONS: chest pain TECHNIQUE: One view of the chest was acquired. COMPARISON: [facility], CR, XR CHEST 2V, 07/21/2019, 16:40. FINDINGS: Surgical changes and devices: None. Lungs and pleura: Lungs are clear. No pleural effusions or pneumothorax. Mediastinum: Mediastinal contours appear normal. Heart size is enlarged. Bones and chest wall: No suspicious bony lesions. Overlying soft tissues appear unremarkable. IMPRESSION: No acute pulmonary process. Dictated by: Nora Weiss M.D. on 08/05/2024 at 15:49 Approved by: Nora Weiss M.D. on 08/05/2024 at 15:50
--- NOTE | 2024-08-05 14:57 | ED.BACK ---
HPI - Back Pain/Injury General Chief Complaint: Back Pain/Injury Stated Complaint: food posioning? back pain Time Seen by Provider: 08/05/24 14:57 Source: patient History of Present Illness HPI Narrative: Patient is a 58-year-old male history of hypertension, chronic low back pain, restless legs syndrome, migraines comes into the ED from home for evaluation of abdominal pain, states that this happened 1 hour after he ate a meal at [employer], this was at around noon. States that he was also having some mild chest pain/discomfort yesterday lasted for approximately 4 hours, states that he has a history of chest pain but has not seek medical attention in the past for this. Patient currently stating that it is cramping in nature nothing making it better or worse, does endorse some nausea but no vomiting. Patient also stating having slight exacerbation of his low back pain but denies any numbness tingling down lower extremities no saddle paresthesias no bowel or urinary incontinence or retention. States that because of his abdominal pain feels like it is causing a flare-up of his low back. Related Data Home Medications Medication Instructions Recorded Confirmed aspirin 81 mg chewable tablet 81 mg PO DAILY 11/01/18 05/26/24 turmeric See Rx Instructions .Route .COMPLEX 06/02/21 05/26/24 [id number] 250 2 tab PO DAILY 04/08/24 05/26/24 mg-250 mg-65 mg tablet (Excedrin Migraine) Allergies Allergy/AdvReac Type Severity Reaction Status Date / Time No Known Drug Allergies Allergy Verified 05/26/24 15:31 Review of Systems Review of Systems Narrative: General: Denies fever, chills, weight loss HEENT: Denies headache, eye drainage, eye irritation, head trauma, sore throat, voice change Cardiovascular: Positive chest pain, denies palpitations, shortness of breath, tachycardia Respiratory: Denies any shortness of breath, cough, wheeze, stridor GI/: Positive abdominal pain, nausea, denies vomiting, diarrhea, bright red blood per rectum, melanotic stools, urinary frequency, urinary retention, dysuria, hematuria MSK: Denies any joint pain, muscle pains, swelling Skin: Denies any rashes, lesions, discoloration Neuro: Denies any headache, lightheadedness, dizziness, fainting, weakness Psych: Denies SI/HI Patient History Medical History (Updated 08/05/24 @ 17:11 by Aubrey Collins DO) Morbid (severe) obesity due to excess calories Impaired glucose tolerance Right inguinal hernia Umbilical hernia Nocturia Vision changes Sleep apnea Restless leg syndrome Migraines Fractures Chronic back pain Hearing loss Hyperlipidemia Hypertension Surgical History No history of previous surgery Family History Mother H/O gastric bypass Kidney disease Liver disease Social History household members: significant other occupational status: employed Previous occupational history: [employer] Smoking Status: Current every day smoker Tobacco: How many years used: 20 alcohol intake: never Smoking Status: Current every day smoker alcohol intake frequency: other Substance Use Type: marijuana Exam Narrative Exam Narrative: General: Cooperative, comfortable, well-developed, not in acute distress HEENT: Normocephalic, atraumatic, PERRLA, normal sclera, eyelids normal, Neck: Active full range of motion, atraumatic Chest: Normal to inspection, negative crepitus, no overlying erythema ecchymosis Respiratory: Normal respiratory effort, not in acute respiratory distress, clear to auscultation bilaterally negative cough, wheeze, tachypnea, rhonchi, rales Cardiology: Regular rate rhythm negative gallop, murmur, rubs GI/: Normal to inspection, soft, nonrigid, mild tenderness to palpation diffusely, exam deferred MSK: Full range of active range of motion of all 4 extremities, atraumatic Skin: No rashes lesions noted Neuro: Alert awake oriented x3, moves all 4 extremities spontaneously, cranial nerves intact, able to answer all questions appropriately follows commands appropriately Psych: Cooperative, negative suicidal or homicidal ideations Initial Vital Signs Initial Vital Signs: Vital Signs Pulse Rate 83 08/05/24 14:51 Pulse Oximetry 95 08/05/24 14:51 Course Orders Ordered: ED Orders 08/05/24 14:57 XR chest 1V Stat EKG-12 Lead Stat 08/05/24 15:01 Complete Blood Count AUTO DIFF Stat Comprehensive Metabolic Panel Stat Lipase Stat Magnesium Stat NT-proBNP (BNP-Adult 18+) Stat PTT Partial Thromboplastin Rafael Stat Prothrombin Time INR Stat Troponin & CK Cardiac Panel Stat 08/05/24 15:02 CT abdomen pelvis w con Stat 08/05/24 15:27 Urine Microscopic Stat Ondansetron HCl (Ondansetron 4 Mg/2 Ml Inj) 4 mg IV NOW PRN PRN Reason: Nausea And Vomiting Last Admin: 08/05/24 15:09 Dose: 4 mg Documented By: DOMINGA Ondansetron HCl (Ondansetron 4 Mg Odt) 4 mg SL NOW PRN PRN Reason: Nausea And Vomiting Discontinued Medications Aspirin (Aspirin 81 Mg Chew Tab) 324 mg PO NOW ONE Stop: 08/05/24 14:58 Last Admin: 08/05/24 15:08 Dose: 324 mg Documented By: SB Morphine Sulfate (Morphine 4 Mg/Ml Inj) 4 mg IV NOW ONE Stop: 08/05/24 15:03 Last Admin: 08/05/24 15:08 Dose: 4 mg Documented By: DOMINGA Vital Signs Vital signs: Vital Signs - 8 hr 08/05/24 14:51 08/05/24 14:53 08/05/24 15:00 Temperature 98.1 F Pulse Rate 83 81 82 Respiratory Rate 16 Blood Pressure 205/106 H Pulse Oximetry 95 96 94 Oxygen Delivery Method Room Air Room Air 08/05/24 15:19 08/05/24 15:19 Temperature Pulse Rate 86 Respiratory Rate Blood Pressure 184/114 H Pulse Oximetry Oxygen Delivery Method MDM - Back Pain/Injury Differential Diagnosis Differential diagnosis: Likely other (Pancreatitis, cholelithiasis, cholecystitis, ACS) Lab Data 08/05/24 15:01 08/05/24 15:01 Labs: Lab Results 08/05/24 08/05/24 Range/Units 15:01 15:27 WBC 12.0 H (4.5-11.0) X10^3/uL RBC 5.03 (4.5-5.9) X10^6/uL Hgb 15.5 (13.5-17.5) g/dL Hct 45.9 (41-53) % MCV 91.2 (80-100) fL MCH 30.9 (26-34) PG MCHC 33.8 (30-36) % RDW 13.4 (11.6-14.8) % Plt Count 353 (150-400) X10^3/uL Neut % (Auto) 66.1 (50-75) % Lymph % (Auto) 22.5 L (25-40) % Stephens % (Auto) 8.4 (3-14) % Eos % (Auto) 1.8 L (2-4) % Baso % (Auto) 1.2 (0-2) % Neut # (Auto) 7900 H (7893-5563) /uL Lymph # (Auto) 2700 (7995-0524) /uL Stephens # (Auto) 1000 H (0-900) /uL Eos # (Auto) 200 (0-450) /uL Baso # (Auto) 100 (0-100) /uL PT 10.9 (9.4-12.5) SECONDS INR 1.0 (0.9-1.3) APTT 35 (25.1-36.5) SECONDS Sodium 138 (137-145) mmol/L Potassium 4.3 (3.4-5.1) mmol/L Chloride 103 (98-107) mmol/L Carbon Dioxide 29 (22-32) mmol/L BUN 19 (9-20) mg/dL Creatinine 1.14 (0.66-1.25) mg/dL Estimated GFR > 60 (>60) mL/min BUN/Creatinine Ratio 16.7 (6-22) Glucose 118 H (70-100) mg/dL Calcium 9.5 (8.4-10.2) mg/dL Magnesium 1.8 (1.6-2.3) mg/dL Total Bilirubin 0.6 (0.2-1.3) mg/dL AST 32 (17-59) IU/L ALT 44 (<50) IU/L Alkaline Phosphatase 87 (38-126) U/L Total Creatine Kinase 102 (55-170) U/L Troponin I < 0.012 (0.01-0.034) ng/mL NT-Pro-B Natriuret Pep 32 (<125) pg/mL Total Protein 7.6 (6.3-8.2) g/dL Albumin 4.7 (3.5-5.0) g/dL Globulin 2.9 (1.7-4.1) g/dL Albumin/Globulin Ratio 1.6 (1.0-2.8) Lipase 100 (23-300) U/L Urine RBC None seen (0-5/HPF) Urine WBC 0-1/hpf (0-5/HPF) Ur Squamous Epith Cells 0-1 /hpf (0-5/HPF) Urine Bacteria Occasional (0-1) (None) Urine Mucus 1+ H (Negative) Ur Culture Indicated? Cult not indicated Vol Urine Centrifuged 10ml (spun) Urine Dip Bedside Urine Glucose Negative Bedside Urine Bilirubin - Negative Bedside Urine Ketone - Negative Urine Specific Melbeta 1.02 Bedside Urine Occult Blood - Negative Bedside Urine pH 6 Bedside Urine Protein - Negative Bedside Urine Urobilinogen - Negative Bedside Urine Nitrite - Negative Bedside Urine Leukocytes +/- 15 Esterase Imaging Data Chest x-ray: Radiologist's Impression: [address] [address] XRay Report Signed Patient: Addi Thornton MR#: [id number] : 1965 Acct:[id number] Age/Sex: 58 / M Date of Service: 08/05/24 Loc: ED Accession Number: [id number] Procedure: XR chest 1V Ordering Provider: Aubrey Collins D.O. PROCEDURE: XR CHEST 1V INDICATIONS: chest pain TECHNIQUE: One view of the chest was acquired. COMPARISON: [facility], , XR CHEST 2V, 07/21/2019, 16:40. FINDINGS: Surgical changes and devices: None. Lungs and pleura: Lungs are clear. No pleural effusions or pneumothorax. Mediastinum: Mediastinal contours appear normal. Heart size is enlarged. Bones and chest wall: No suspicious bony lesions. Overlying soft tissues appear unremarkable. IMPRESSION: No acute pulmonary process. CT scan - abdomen/pelvis: Radiologist's Impression: [address] [address] [address] Scan Report Signed Patient: Addi Thornton MR#: [id number] : 1965 Acct:[id number] Age/Sex: 58 / M Date of Service: 08/05/24 Loc: ED Accession Number: [id number] Procedure: CT abdomen pelvis w con Ordering Provider: Aubrey Collins D.O. PROCEDURE: CT ABDOMEN PELVIS W CON INDICATIONS: diffuse abd pain TECHNIQUE: After the administration of intravenous contrast, axial sections acquired from the lung bases to the pubic symphysis. Coronal and sagittal reformats were performed. For radiation dose reduction, the following was used: automated exposure control, adjustment of mA and/or kV according to patient size. COMPARISON: None. FINDINGS: Image quality: Diagnostic. Lower Chest: Bibasilar dependent atelectasis is seen. Heart size is mildly enlarged, no pericardial effusion. ABDOMEN: Liver: No solid mass. There is moderate to severe hepatic steatosis. Gallbladder: No radiopaque gallstones or wall thickening. Biliary ducts: No biliary dilation. Pancreas: No ductal dilation. Spleen: Size is within normal limits. Adrenal Glands: No adrenal nodules. Kidneys and Ureters: Horseshoe kidney configuration is noted. There is left perinephric fat stranding. Prominence of left renal collecting system is noted with extensive left periureteral fat stranding. No obstructing renal stone or ureteral stone is seen. No right-sided hydronephrosis or hydroureter. Stomach and Bowel: There is no bowel obstruction. No abnormal bowel wall thickening or mesenteric fat stranding. Appendix is visualized and is within normal limits. Sigmoid diverticulosis is seen without focal area of colonic wall thickening or pericolonic fat stranding. No abscess collection. Peritoneum: No abnormal intraperitoneal fluid. No free air. Ventral Wall: No significant ventral hernia. Abdominal Nodes: No retroperitoneal or mesenteric adenopathy by size criteria. Vessels: Aorta and inferior vena cava are normal in size. PELVIS: Pelvic Organs: Unremarkable. Bladder: No bladder wall thickening, accounting for underdistention. Pelvic Nodes: No enlarged lymph nodes. Miscellaneous: No inguinal hernias are seen. Bones: No aggressive osseous abnormality. IMPRESSION: 1. Horseshoe kidney. [id number] left-sided hydronephrosis and hydroureter with periureteral and perinephric fat stranding. No obstructing stone is seen. Finding may represent recently passed left-sided renal stone versus infectious process such as pyelonephritis. No right-sided hydronephrosis or hydroureter. Normal appearing urinary bladder. 2. Severe hepatic steatosis, no discrete hepatic lesion. 3. No bowel obstruction or abnormal bowel wall thickening. Normal appendix. Sigmoid diverticulosis without CT evidence of acute diverticulitis. No free fluid or free air. ECG Data Attestation: I personally reviewed and interpreted this ECG as follows: Interpretation: EKG interpreted ED physician sinus 84 beats per minute, QTC [address] changes no STEMI MDM Narrative Medical decision making narrative: Patient is a 58-year-old male history of hyperlipidemia hypertension chronic low back pain presents for abdominal pain started 3 hours prior to arrival, states that it started an hour after he was eating a meal in [employer]. Also endorses chest pain that lasted approximately 4 hours last night, currently not complaining of any chest pain shortness of breath. States that he has had history of chest pains in the past but never seek medical attention. Not on any blood thinners CT scan showed horseshoe kidney with mild hydro and perinephric stranding without any signs of obstructing stone. BUN creatinine normal. Patient states that he does know about his horseshoe kidney. At re-evaluation patient with complete resolution of symptoms. CT scan without any acute findings. Patient was instructed to follow up with primary care strict return precautions given he verbalized understanding of this and agrees to being discharged home with outpatient follow up. Discharge Plan Departure Patient Disposition: Home Clinical Impression: Abdominal pain, Horseshoe kidney Activity Restrictions/Additional Instructions: Please follow up with primary care Please read the discharge instructions sheet carefully and bring all papers to all doctor follow-up visits, as it may contain information that your doctor may want to see. Disease processes change and evolve, if your symptoms worsen or if you develop any new symptoms that are concerning to you please return for evaluation. Your evaluation today does not show any evidence of any life-threatening/serious illnesses requiring admission to the hospital or surgery. Please follow-up with your doctor for re-evaluation in approximately 1 day. Seek immediate medical attention for any worrisome symptoms. Prescriptions: No Action Excedrin Migraine 250-250-65 mg tablet 2 tab PO DAILY turmeric See Rx Instructions .ROUTE .COMPLEX Rx Instructions: for pain control aspirin 81 mg Tablet,Chewable 81 mg PO DAILY Referrals: Michael Reinoso MD [Primary Care Provider] - Stand Alone Forms: Patient Portal/API
--- NOTE | 2024-08-05 15:02 | DI.CT.S_ITS ---
PROCEDURE: CT ABDOMEN PELVIS W CON INDICATIONS: diffuse abd pain TECHNIQUE: After the administration of intravenous contrast, axial sections acquired from the lung bases to the pubic symphysis. Coronal and sagittal reformats were performed. For radiation dose reduction, the following was used: automated exposure control, adjustment of mA and/or kV according to patient size. COMPARISON: None. FINDINGS: Image quality: Diagnostic. Lower Chest: Bibasilar dependent atelectasis is seen. Heart size is mildly enlarged, no pericardial effusion. ABDOMEN: Liver: No solid mass. There is moderate to severe hepatic steatosis. Gallbladder: No radiopaque gallstones or wall thickening. Biliary ducts: No biliary dilation. Pancreas: No ductal dilation. Spleen: Size is within normal limits. Adrenal Glands: No adrenal nodules. Kidneys and Ureters: Horseshoe kidney configuration is noted. There is left perinephric fat stranding. Prominence of left renal collecting system is noted with extensive left periureteral fat stranding. No obstructing renal stone or ureteral stone is seen. No right-sided hydronephrosis or hydroureter. Stomach and Bowel: There is no bowel obstruction. No abnormal bowel wall thickening or mesenteric fat stranding. Appendix is visualized and is within normal limits. Sigmoid diverticulosis is seen without focal area of colonic wall thickening or pericolonic fat stranding. No abscess collection. Peritoneum: No abnormal intraperitoneal fluid. No free air. Ventral Wall: No significant ventral hernia. Abdominal Nodes: No retroperitoneal or mesenteric adenopathy by size criteria. Vessels: Aorta and inferior vena cava are normal in size. PELVIS: Pelvic Organs: Unremarkable. Bladder: No bladder wall thickening, accounting for underdistention. Pelvic Nodes: No enlarged lymph nodes. Miscellaneous: No inguinal hernias are seen. Bones: No aggressive osseous abnormality. IMPRESSION: 1. Horseshoe kidney. [id number] left-sided hydronephrosis and hydroureter with periureteral and perinephric fat stranding. No obstructing stone is seen. Finding may represent recently passed left-sided renal stone versus infectious process such as pyelonephritis. No right-sided hydronephrosis or hydroureter. Normal appearing urinary bladder. 2. Severe hepatic steatosis, no discrete hepatic lesion. 3. No bowel obstruction or abnormal bowel wall thickening. Normal appendix. Sigmoid diverticulosis without CT evidence of acute diverticulitis. No free fluid or free air. Dictated by: Macario Cameron M.D. on 08/05/2024 at 16:13 Approved by: Macario Cameron M.D. on 08/05/2024 at 16:19
[2024-08-05] MEDS: ASPIRIN 81 MG CHEW TAB 324 MG PO (15:08)
[2024-08-05] MEDS: MORPHINE 4 MG/ML INJ IV (15:08)
[2024-08-05] MEDS: ONDANSETRON 4 MG/2 ML INJ IV (15:09)
[2024-08-05 15:16] LABS: Prothrombin Time 10.9 SECONDS (9.4-12.5)
[2024-08-05 15:19] LABS: PTT Partial Thromboplastin Tim 35 SECONDS (25.1-36.5)
[2024-08-05 15:20] LABS: Alanine Aminotransferase 44 IU/L (<50); Albumin 4.7 g/dL (3.5-5.0); Albumin Globulin Ratio 1.6 (1.0-2.8); Alkaline Phosphatase 87 U/L (38-126); Aspartate Aminotransferase 32 IU/L (17-59); BUN Creatinine Ratio 16.7 (6-22); Bilirubin Total 0.6 mg/dL (0.2-1.3); Blood Urea Nitrogen 19 mg/dL (9-20); Calcium 9.5 mg/dL (8.4-10.2); Carbon Dioxide 29 mmol/L (22-32); Chloride 103 mmol/L (98-107); Creatine Kinase 102 U/L (55-170); Estimated Glomerular Filt Rate > 60 mL/min (>60); Globulin 2.9 g/dL (1.7-4.1); Glucose 118 mg/dL (70-100); HEMOLYSIS < 15 (0-50); Lipase 100 U/L (23-300); Magnesium 1.8 mg/dL (1.6-2.3); Potassium 4.3 mmol/L (3.4-5.1); Sodium 138 mmol/L (137-145); Total Protein 7.6 g/dL (6.3-8.2)
[2024-08-05 15:32] LABS: NT-proBNP (BNP-Adult 18+) 32 pg/mL (<125); Troponin I < 0.012 ng/mL (0.01-0.034)
[2024-08-05 15:36] LABS: Add Manual Diff / Slide Review NO; Basophils Absolute Auto 100 /uL (0-100); Basophils Percent Auto 1.2 % (0-2); Eosinophils Absolute Auto 200 /uL (0-450); Eosinophils Percent Auto 1.8 % (2-4); Hematocrit 45.9 % (41-53); Hemoglobin 15.5 g/dL (13.5-17.5); Lymphocytes Absolute Auto 2700 /uL (1100-4500); Lymphocytes Percent Auto 22.5 % (25-40); Mean Corpuscular HGB Conc 33.8 % (30-36); Mean Corpuscular Hemoglobin 30.9 PG (26-34); Mean Corpuscular Volume 91.2 fL (80-100); Monocytes Absolute Auto 1000 /uL (0-900); Monocytes Percent Auto 8.4 % (3-14); Neutrophils Absolute Auto 7900 /uL (1500-7000); Neutrophils Percent Auto 66.1 % (50-75); Platelet Count 353 X10^3/uL (150-400); Red Blood Cell Count 5.03 X10^6/uL (4.5-5.9); Red Cell Distribution Width 13.4 % (11.6-14.8)
[2024-08-05 16:43] LABS: Bacteria Urine Occasional (0-1); Culture Indicated Urine Cult Not Indicated; Mucus Urine 1+ (Negative); RBC Urine None Seen (0-5/HPF); Squamous Epithelial Cell Urine 0-1 /HPF (0-5/HPF); Urine Volume 10mL (spun); WBC Urine 0-1/HPF (0-5/HPF)
== END 2024-08-05 17:24 | disposition home or self-care (01) ==
PROVIDERS: Emergency Provider Student in an Organized Health Care Education/Training Program; PCP Internal Medicine
DX: R10.9 Unspecified abdominal pain (principal); R07.9 Chest pain, unspecified; M54.50 Low back pain, unspecified; I10 Essential (primary) hypertension; E78.5 Hyperlipidemia, unspecified; Q63.1 Lobulated, fused and horseshoe kidney
CPT/HCPCS: 36415; 51798; 71045; 74177; 80053; 81003; 81015; 82550; 83690; 83735; 83880; 84484; 85025; 85610; 85730; 93005; 96374; 96375; 99284; J2270; J2405; Q9967

== ENCOUNTER 2024-09-15 15:36 | Emergency (ER) | payer OTHER, SELFPAY ==
[2018-11-01 15:35] VITALS: BMI 35.9
[2018-11-01 19:10] VITALS: PULSE 91; RESP 20; O2SAT 96
[2024-09-15 15:54] VITALS: BP 172/104; PULSE 94; RESP 18; TEMP 36.7; O2SAT 94; BMI 39.5
--- NOTE | 2024-09-15 16:01 | DI.RAD.S_ITS ---
PROCEDURE: XR FOREARM LT 2V INDICATIONS: injury to distal left arm TECHNIQUE: 2 views of the forearm were acquired. COMPARISON: None. FINDINGS: Bones: No fractures or dislocations. No suspicious bony lesions. Radioulnar osteoarthritis. Soft tissues: No suspicious soft tissue calcifications or masses. IMPRESSION: No acute bony abnormality. Dictated by: Dick Vega M.D. on 09/15/2024 at 16:25 Approved by: Dick Vega M.D. on 09/15/2024 at 16:25
--- NOTE | 2024-09-15 16:01 | DI.RAD.S_ITS ---
PROCEDURE: XR WRIST LT MIN 3V INDICATIONS: injury to distal left arm TECHNIQUE: 4 views of the wrist were acquired. COMPARISON: None. FINDINGS: Bones: No fractures or dislocations. No suspicious bony lesions. Radioulnar joint space narrowing with osteophytosis, consistent with osteoarthritis. Soft tissues: No suspicious soft tissue calcifications. IMPRESSION: No acute bony abnormality. Dictated by: Dick Vega M.D. on 09/15/2024 at 16:25 Approved by: Dick Vega M.D. on 09/15/2024 at 16:26
--- NOTE | 2024-09-15 17:23 | PC.NURSE ---
5 days ago pt was attempting to start a chainsaw when the pull cord did not fully extend, resulting in the T shaped pull cord being ripped out of his grasp. Pt sttates it has not gotten any better and is getting worse. Swollen left wrist
[2024-09-15] MEDS: KETOROLAC 30 MG/ML VIAL IM (18:11)
--- NOTE | 2024-09-15 18:19 | PC.NURSE ---
PT REFUSED VITAL SIGNS STATING I've been here since 2:30 and I need to leave now! I havent had lunch. Supplied pt with egg salad sadwich, cheese sticks, and apple juice.
--- NOTE | 2024-09-15 18:55 | ED_ITS ---
HPI - Extremity Injury (Upper) <Ron Mireles PA-C - Last Filed: 09/16/24 11:29> General Chief Complaint: Extremity Injury, Upper Stated Complaint: wrist pain Time Seen by Provider: 09/15/24 17:04 Source: patient Mode of arrival: Ambulatory History of Present Illness HPI narrative: 58-year-old male presents to the ED status post an incident with a chain saw pull cord that occurred 5 days ago. Patient was trying to pull the cord, when the injury stuck, causing the car to Yank on his left forearm and wrist. Patient has suffered pain and swelling since this injury. No numbness, tingling, weakness. Related Data Home Medications Medication Instructions Recorded Confirmed aspirin 81 mg chewable tablet 81 mg PO DAILY 11/01/18 09/02/24 turmeric See Rx Instructions .Route .COMPLEX 06/02/21 09/02/24 dirqicl-[id number] 250 2 tab PO DAILY 04/08/24 09/02/24 mg-250 mg-65 mg tablet (Excedrin Migraine) Previous Rx's Medication Instructions Recorded sumatriptan succinate 50 mg tablet See Rx Instructions PO .COMPLEX 09/02/24 #20 tabs tamsulosin 0.4 mg capsule 0.4 mg PO BEDTIME #90 caps 09/02/24 Allergies Allergy/AdvReac Type Severity Reaction Status Date / Time No Known Drug Allergies Allergy Verified 09/02/24 15:01 Review of Systems <Ron Mireles PA-C - Last Filed: 09/16/24 11:29> Constitutional Constitutional: Denies chills, Denies fatigue, Denies fever(s), Denies frequent falls, Denies lethargy and Denies weakness Eyes Eyes: Denies change in vision, Denies eye discharge, Denies irritation and Denies loss of vision ENT Ears, Nose, Mouth, and Throat: Denies change in voice, Denies dizziness, Denies neck pain, Denies sore throat and Denies throat swelling Cardiovascular Cardiovascular: Denies chest pain, Denies irregular heart rhythm, Denies lightheadedness, Denies palpitations, Denies dyspnea, Denies dyspnea on exertion and Denies orthopnea Respiratory Respiratory: Denies cough, Denies dyspnea, Denies dyspnea on exertion and Denies wheezing Gastrointestinal Gastrointestinal: Denies abdominal pain, Denies change in bowel habits, Denies diarrhea, Denies nausea and Denies vomiting Musculoskeletal Musculoskeletal: Denies neck pain and Denies numbness Comments: Left forearm and wrist pain and swelling Integumentary/Breasts Skin/Breast: Denies pruritus, Denies erythema, Denies rash and Denies wounds Neurologic Neurologic: Denies behavioral changes, Denies confusion, Denies dizziness, Denies frequent falls, Denies loss of vision, Denies numbness and Denies weakness Psychiatric Psychiatric: Denies anxiety, Denies behavioral changes, Denies confusion, Denies depression, Denies homicidal ideation and Denies suicidal ideation Endocrine Endocrine: Denies fatigue, Denies flushing and Denies palpitations Hematologic/Lymphatic Hematologic/Lymphatic: Denies easy bruising Allergic/Immunologic Allergic/Immunologic: Denies urticaria, Denies throat swelling and Denies wheezing Patient History <Ron Mireles PA-C - Last Filed: 09/16/24 11:29> Medical History Lower urinary tract symptoms BPH (benign prostatic hyperplasia) Morbid (severe) obesity due to excess calories Impaired glucose tolerance Right inguinal hernia Umbilical hernia Nocturia Vision changes Sleep apnea Restless leg syndrome Migraines Fractures Chronic back pain Hearing loss Hyperlipidemia Hypertension Surgical History No history of previous surgery Family History Mother H/O gastric bypass Kidney disease Liver disease Social History household members: significant other occupational status: employed Previous occupational history: [employer] Smoking Status: Current every day smoker Tobacco: How many years used: 20 alcohol intake: never Smoking Status: Current every day smoker tobacco type: cigarettes alcohol intake frequency: other Substance Use Type: does not use Exam <Ron Mireles PA-C - Last Filed: 09/16/24 11:29> Narrative Exam Narrative: Const General:?cooperative, healthy appearing and comfortable [facility] Head:?normal to inspection Ears:?hearing grossly normal bilaterally Nose:?external nose normal Face and sinus:?normal facial exam and sinuses nontender Mouth:?oral mucosae normal Throat:?posterior oropharynx normal Eyes General:?appearance normal, both eyes and all related structures Neck Neck:?normal visual inspection and no lymphadenopathy noted Resp Effort & Inspection:?normal respiratory effort Auscultation:?clear to auscultation bilaterally Cardio Rate:?regular rate Rhythm:?regular rhythm Musculoskeletal Left forearm and wrist appear swollen, tender to touch. No deformities. Range of motion is limited by pain. Sensation is intact. Neurovascularly intact. Neuro General:?patient alert, patient awake and patient oriented x3 Initial Vital Signs Initial Vital Signs: Vital Signs Temperature 98.1 F 09/15/24 15:54 Pulse Rate 94 H 09/15/24 15:54 Respiratory Rate 18 09/15/24 15:54 Blood Pressure 172/104 H 09/15/24 15:54 Pulse Oximetry 94 09/15/24 15:54 Oxygen Delivery Method Room Air 09/15/24 15:54 <Stephania Paul DO - Last Filed: 09/16/24 19:38> Initial Vital Signs Initial Vital Signs: Vital Signs Temperature 98.1 F 09/15/24 15:54 Pulse Rate 94 H 09/15/24 15:54 Respiratory Rate 18 09/15/24 15:54 Blood Pressure 172/104 H 09/15/24 15:54 Pulse Oximetry 94 09/15/24 15:54 Oxygen Delivery Method Room Air 09/15/24 15:54 Course <Ron Mireles PA-C - Last Filed: 09/16/24 11:29> Orders Ordered: Discontinued Medications Ketorolac Tromethamine (Ketorolac 30 Mg/Ml Vial) 30 mg IM NOW ONE Stop: 09/15/24 18:05 Last Admin: 09/15/24 18:11 Dose: 30 mg Documented By: JAEL Vital Signs Vital signs: Vital Signs - 8 hr 09/15/24 15:54 Temperature 98.1 F Pulse Rate 94 H Respiratory Rate 18 Blood Pressure 172/104 H Pulse Oximetry 94 Oxygen Delivery Method Room Air <DO Marlene Valentin Last Filed: 09/16/24 19:38> Orders Ordered: Discontinued Medications Ketorolac Tromethamine (Ketorolac 30 Mg/Ml Vial) 30 mg IM NOW ONE Stop: 09/15/24 18:05 Last Admin: 09/15/24 18:11 Dose: 30 mg Documented By: SPF Vital Signs Vital signs: Vital Signs - 8 hr 09/15/24 15:54 Temperature 98.1 F Pulse Rate 94 H Respiratory Rate 18 Blood Pressure 172/104 H Pulse Oximetry 94 Oxygen Delivery Method Room Air MDM - Extremity Injury (Upper) <Ron Mireles PA-C - Last Filed: 09/16/24 11:29> [facility] Narrative Medical decision making narrative: 58-year-old male presents to the ED status post an incident with a chain saw pull cord that occurred 5 days ago. Concern for fracture/dislocation versus musculoskeletal sprain/strain versus other. Wrist and forearm x-rays without acute bony abnormalities. Patient given an injection of Toradol in the ED. offered a sling for comfort. Recommend Tylenol, ibuprofen for pain and swelling. ED return precautions discussed with patient. Patient verbalized understanding. Medical records reviewed: Yes Discharge Plan Departure Patient Disposition: Home Clinical Impression: Arm pain Qualifiers: Laterality: left Qualified Code(s): M79.602 - Pain in left arm Instructions: DI for Wrist Sprain Activity Restrictions/Additional Instructions: You were evaluated in the ED today for wrist and forearm pain. Your x-ray was normal. Your symptoms are likely due to a musculoskeletal sprain/strain. You may keep your arm in a sling. You were given a injection of Toradol in the ED today. You may continue to take Tylenol and ibuprofen at home. Please follow- up with your PCP as soon as possible. Return to the ED if you have worsening sy mptoms, numbness, tingling, weakness. Prescriptions: No Action Excedrin Migraine 250-250-65 mg tablet 2 tab PO DAILY tamsulosin 0.4 mg capsule 0.4 mg PO BEDTIME Qty: 90 3RF sumatriptan succinate 50 mg tablet See Rx Instructions PO .COMPLEX Qty: 20 0RF Rx Instructions: take 1 tab at onset of headache; if no relief may repeat 1 tab after at least 2 hrs; max = 4 tabs/24 hr PO turmeric See Rx Instructions .ROUTE .COMPLEX Rx Instructions: for pain control aspirin 81 mg Tablet,Chewable 81 mg PO DAILY Referrals: Michael Reinoso MD [Primary Care Provider] - Stand Alone Forms: Patient Portal/API/Survey ED Sign-out <Stephania Paul DO - Last Filed: 09/16/24 19:38> Cosign ED Attending Cosigorature Attestation: I was immediately available in the department for consultation.
== END 2024-09-15 18:26 | disposition home or self-care (01) ==
PROVIDERS: Emergency Provider Student in an Organized Health Care Education/Training Program; PCP Internal Medicine
DX: M79.602 Pain in left arm (principal)
CPT/HCPCS: 73090; 73110; 96372; 99283; 99284; J1885

== ENCOUNTER → 2025-02-19 15:20 | Outpatient (CLI) | payer OTHER, SELFPAY ==
[2018-11-01 15:35] VITALS: BMI 35.9
[2018-11-01 19:10] VITALS: PULSE 91; RESP 20; O2SAT 96
[2025-02-19 16:09] LABS: Hemoglobin A1C% w Est Avg Glu 6.1 % (4.0-6.0)
[2025-02-19 16:31] LABS: Alanine Aminotransferase 34 IU/L (<50); Albumin 4.4 g/dL (3.5-5.0); Albumin Globulin Ratio 1.9 (1.0-2.8); Alkaline Phosphatase 82 U/L (38-126); Aspartate Aminotransferase 29 IU/L (17-59); BUN Creatinine Ratio 17.1 (6-22); Bilirubin Total 0.6 mg/dL (0.2-1.3); Blood Urea Nitrogen 18 mg/dL (9-20); Calcium 9.3 mg/dL (8.4-10.2); Carbon Dioxide 28 mmol/L (22-32); Chloride 103 mmol/L (98-107); Estimated Glomerular Filt Rate > 60 mL/min (>60); Globulin 2.3 g/dL (1.7-4.1); Glucose 104 mg/dL (70-99); HEMOLYSIS < 15 (0-50); Potassium 4.1 mmol/L (3.4-5.1); Sodium 138 mmol/L (137-145); Total Protein 6.7 g/dL (6.3-8.2)
[2025-02-19 16:45] LABS: Appearance Urine UA CLEAR; Bilirubin Urine UA NEGATIVE (NEGATIVE); Color Urine UA YELLOW; Glucose Urine UA NEGATIVE (Negative); Ketones Urine UA NEGATIVE (NEGATIVE); Leukocyte Esterase Urine UA NEGATIVE (NEGATIVE); Nitrite Urine UA NEGATIVE (Negative); Occult Blood Urine UA NEGATIVE (Negative); Protein Urine UA NEGATIVE (Negative); Specific Gravity Urine UA 1.025 (1.000-1.035); Urobilinogen Urine UA 0.2 E.U./dL (0.2)
[2025-02-19 16:57] LABS: Bacteria Urine None Seen; Culture Indicated Urine Cult Not Indicated; RBC Urine None Seen (0-5/HPF); Squamous Epithelial Cell Urine 0-1 /HPF (0-5/HPF); Urine Volume 10mL (spun); WBC Urine 0-1/HPF (0-5/HPF)
== END ==
PROVIDERS: PCP Internal Medicine; Referring Provider Internal Medicine; Visit Provider Internal Medicine
DX: R73.02 Impaired glucose tolerance (oral) (principal); I10 Essential (primary) hypertension; N40.0 Benign prostatic hyperplasia without lower urinary tract symptoms
CPT/HCPCS: 36415; 80053; 81001; 83036

== ENCOUNTER → 2025-09-16 14:30 | Outpatient (CLI) | payer OTHER, SELFPAY ==
[2018-11-01 15:35] VITALS: BMI 35.9
[2018-11-01 19:10] VITALS: PULSE 91; RESP 20; O2SAT 96
== END ==
PROVIDERS: PCP Internal Medicine; Referring Provider Internal Medicine; Visit Provider Internal Medicine
DX: Z12.11 Encounter for screening for malignant neoplasm of colon (principal)
CPT/HCPCS: 82274

== ENCOUNTER → 2025-09-16 15:20 | Outpatient (CLI) | payer OTHER, SELFPAY ==
[2018-11-01 15:35] VITALS: BMI 35.9
[2018-11-01 19:10] VITALS: PULSE 91; RESP 20; O2SAT 96
--- NOTE | 2025-09-16 15:23 | DI.RAD.S_ITS ---
PROCEDURE: XR CHEST 2V INDICATIONS: cough x 1 year TECHNIQUE: 2 views of the chest were acquired. COMPARISON: [facility], CR, XR CHEST 1V, 08/05/2024, 14:58. FINDINGS: Moderate bilateral diffuse peribronchial thickening and patchy opacities, more than expected for expiratory result. Bronchitis, viral infection, bronchopneumonia, atypical pneumonia, asthma or other process should be considered. Follow-up is needed. Mild bibasilar subsegmental atelectasis some of which may be related expiratory result. Nonspecific widening of the mediastinum some of which may be related to tortuous or ectatic versus aneurysmal aorta however rarely enlarged mediastinal lymph nodes, or mediastinal mass could have a similar appearance. CT chest would be useful for further evaluation.. Cardiopericardial silhouette within normal limits. No pneumothorax, no pleural effusion, no lobar consolidation. IMPRESSION: Moderate peribronchial thickening and patchy opacities as discussed above. Follow-up suggested. Widened mediastinum as discussed above. CT chest with IV contrast would be useful for further evaluation. Dictated by: Neftali Horvath M.D. on 09/16/2025 at 15:44 Approved by: Neftali Horvath M.D. on 09/16/2025 at 15:47
[2025-09-16 16:07] LABS: Add Manual Diff / Slide Review NO; Hematocrit 46.4 % (41-53); Hemoglobin 16.1 g/dL (13.5-17.5); Lymphocytes Absolute Auto 2200 /uL (1100-4500); Mean Corpuscular HGB Conc 34.6 % (30-36); Mean Corpuscular Hemoglobin 31.5 PG (26-34); Mean Corpuscular Volume 91.0 fL (80-100); Platelet Count 320 X10^3/uL (150-400)
[2025-09-16 16:18] LABS: Hemoglobin A1C% w Est Avg Glu 6.1 % (4.0-6.0)
[2025-09-16 17:18] LABS: Alanine Aminotransferase 59 IU/L (<50); Albumin 4.7 g/dL (3.5-5.0); Albumin Globulin Ratio 1.9 (1.0-2.8); Alkaline Phosphatase 81 U/L (38-126); Blood Urea Nitrogen 15 mg/dL (9-20); Calcium 9.6 mg/dL (8.4-10.2); Carbon Dioxide 27 mmol/L (22-32); Chloride 103 mmol/L (98-107); Estimated Glomerular Filt Rate > 60 mL/min (>60); Globulin 2.5 g/dL (1.7-4.1); Glucose 104 mg/dL (70-99); HEMOLYSIS < 15 (0-50); Potassium 4.6 mmol/L (3.4-5.1); Sodium 138 mmol/L (137-145); Total Protein 7.2 g/dL (6.3-8.2)
[2025-09-16 17:52] LABS: TSH w/ Reflex to FT4 1.32 uIU/mL (0.47-4.68)
[2025-09-16 18:10] LABS: Vitamin B12 Reflex MMA if <400 712 pg/mL (239-931)
== END ==
LOC: RAD 15:22
PROVIDERS: PCP Internal Medicine; Referring Provider Internal Medicine; Visit Provider Physician Assistant
DX: R05.3 Chronic cough (principal); N63.0 Unspecified lump in unspecified breast; N40.1 Benign prostatic hyperplasia with lower urinary tract symptoms; R35.1 Nocturia; E66.01 Morbid (severe) obesity due to excess calories; G62.9 Polyneuropathy, unspecified; Z12.5 Encounter for screening for malignant neoplasm of prostate
CPT/HCPCS: 36415; 71046; 80053; 82607; 83036; 84443; 85025; G0103

== ENCOUNTER → 2025-09-18 15:26 | Outpatient (CLI) | payer OTHER, SELFPAY ==
[2018-11-01 15:35] VITALS: BMI 35.9
[2018-11-01 19:10] VITALS: PULSE 91; RESP 20; O2SAT 96
--- NOTE | 2025-09-18 15:28 | DI.CT.S_ITS ---
PROCEDURE: CT CHEST W CON INDICATIONS: possible mediastinal mass, breast mass TECHNIQUE: After the administration of intravenous contrast, 5 mm thick sections acquired from the pulmonary apices to the posterior costophrenic angles. 1 mm axial lung, 5 mm thick coronal and sagittal reformats and 7 mm axial MIP were acquired. For radiation dose reduction, the following was used: automated exposure control, adjustment of mA and/or kV according to patient size. COMPARISON: [facility], CR, XR CHEST 2V, 09/16/2025, 15:23. FINDINGS: Image quality: Diagnostic. Lower Neck: No enlarged lymph nodes. Thyroid: No thyroid nodules which require sonographic follow up, per consensus guidelines. Axillae: No enlarged lymph nodes. Chest Wall: Unremarkable. Bones: Visualized osseous structures appear intact without acute fracture or focal destructive lesion. No acute compression fractures of the imaged spine. Lungs and Pleura: No pneumothorax or pleural effusions. No focal consolidation. No suspicious pulmonary nodules. No septal thickening or nodularity. Mild bilateral perihilar airway thickening. Dependent atelectasis. Minimal patchy ground- glass opacities predominantly noted in the upper lobes. Heart: Heart size is normal. No pericardial effusion. Thoracic Vessels: There is ectasia of the ascending thoracic aorta measuring 0.7 cm in size. Mildly enlarged main pulmonary artery measuring 3.3 cm. This may be related to sequela of chronic pulmonary arterial hypertension. Mediastinum and Luann: No enlarged lymph nodes. Esophagus: No wall thickening. No hiatal hernia. Upper Abdomen: Hepatic steatosis. Other visualized upper abdomen solid organs and bowel loops appear unremarkable. IMPRESSION: No evidence for mediastinal mass. Mediastinal contours on comparison radiograph likely related to mildly tortuous course of the ectatic thoracic aorta. Mildly enlarged main pulmonary artery, likely related to sequela of chronic pulmonary arterial hypertension. Mild bilateral perihilar airway thickening and subtle patchy ground-glass opacities of the bilateral hemithoraces. This is nonspecific but may represent bronchitis either infectious or inflammatory in etiology. No focal consolidations noted. Dictated by: Denis Palencia M.D. on 09/18/2025 at 17:18 Approved by: Denis Palencia M.D. on 09/18/2025 at 17:25
== END ==
LOC: CT 15:27
PROVIDERS: PCP Internal Medicine; Referring Provider Internal Medicine; Visit Provider Physician Assistant
DX: N63.0 Unspecified lump in unspecified breast (principal); J98.59 Other diseases of mediastinum, not elsewhere classified; I77.810 Thoracic aortic ectasia; K76.0 Fatty (change of) liver, not elsewhere classified
CPT/HCPCS: 71260; Q9967

== ENCOUNTER → 2025-10-13 13:20 | Outpatient (CLI) | payer OTHER, SELFPAY ==
[2018-11-01 15:35] VITALS: BMI 35.9
[2018-11-01 19:10] VITALS: PULSE 91; RESP 20; O2SAT 96
== END ==
LOC: RESP 13:20
PROVIDERS: PCP Internal Medicine; Referring Provider Internal Medicine; Visit Provider Internal Medicine
DX: R05.3 Chronic cough (principal); F17.210 Nicotine dependence, cigarettes, uncomplicated; J98.8 Other specified respiratory disorders; R94.2 Abnormal results of pulmonary function studies
CPT/HCPCS: 94060; 94726; 94729